=== PATIENT | male | born 1950 | race African-American/Black ===

== ENCOUNTER 2018-02-10 08:13 | Day surgery (SDC) | payer MEDICARE ==
[2018-02-05 12:11] VITALS: BMI 32.5
[~2018-02-10 08:13] MED LIST: LACTATED RINGERS 1,000 ML IV SCH; LIDOCAINE 1% 20 ML VIAL (10MG/ML) FOR IV START INTRADERMA PRN
[2018-02-10 08:48] VITALS: RESP 16; TEMP 97.3
[2018-02-10] MEDS ORDERED: LIDOCAINE 1% INJ 10MG/ML (20 ML MDV) ONE (09:34)
[2018-02-10] MEDS ORDERED: PROPOFOL 10 MG/ML 20 ML VIAL IV ONE (09:34)
[2018-02-10 10:21] VITALS: BP 138/78; PULSE 52
--- NOTE | 2018-02-10 11:15 | P.PCN ---
Date of Procedure: 02/10/18 Procedure(s) Performed: Procedure: Colonoscopy and polypectomy. Preoperative diagnosis: Screening for neoplasia, patient has history of colon cancer. Postoperative diagnosis: 1. Sigmoid diverticulosis with no evidence of acute diverticulitis or strictures. 2. Hepatic flexure polyp snared but no large polyps or cancer. 3. S/P resection right colon with no evidence of local recurrence. Preparation: HalfLytely prep. Sedation: Was provided by anesthesia. 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 The patient is scheduled for this evaluation for screening for neoplasia. He has no abdominal complaints, bleeding or anemia. Procedure: With the patient on his left lateral decubitus position and after informed consent and adequate sedation, the perianal area was inspected and it did not show any fissures or fistulas. There were no masses felt on digital rectal examination. The Olympus CFQ 160L video colonoscope was then inserted in the rectum in the usual fashion and advanced to the cecum. There were a few diverticular orifices seen scattered in the sigmoid but I saw no evidence of acute diverticulitis or strictures. Around the hepatic flexure, there was a 1.5 cm polyp which was snared and retrieved by suction but there were no large polyps or cancer. I noted the resection area and the proximal right colon and there was no evidence of local recurrence. I retroflexed the endoscope in the rectum before the endoscope was withdrawn. The patient tolerated the procedure well. Plan: The patient was reassured. Discussed dietary measures. He will follow up with you as planned and I recommended repeat exam in 3-5 years.
== END 2018-02-10 10:27 | disposition home or self-care (01) ==
LOC: ORWHC2ENDO 08:13
DX: Z12.11 Encounter for screening for malignant neoplasm of colon (principal); D12.3 Benign neoplasm of transverse colon; K57.30 Diverticulosis of large intestine without perforation or abscess without bleeding; Z90.49 Acquired absence of other specified parts of digestive tract; Z85.038 Personal history of other malignant neoplasm of large intestine; Z86.010 Personal history of colon polyps; I10 Essential (primary) hypertension; Z79.899 Other long term (current) drug therapy
CPT/HCPCS: 88305; 45385; J2001; J2704

== ENCOUNTER 2019-11-08 21:23 | Emergency (ER) | payer MEDICARE ==
[2019-11-08 21:30] VITALS: RESP 18; TEMP 98.1
[2019-11-08] MEDS ORDERED: LIDOCAINE 1% INJ 10MG/ML (20 ML MDV) SQ ONE (21:36)
[2019-11-08] MEDS ORDERED: DIPH,PERTUS(ACELL)TETVAC-LF 0.5 ML VIAL IM ONE (21:36)
[2019-11-08] MEDS ORDERED: WATER FOR IRRIG, STERILE 1,000 ML BTL IRRIGATION ONE (21:36)
--- NOTE | 2019-11-08 21:52 | ED ---
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 Just prior to arrival patient had a fall hitting his head on a glass table. The glass table didn't break causing lacerations to the right side of his head. Patient denies any loss of consciousness with this. He is unsure when his last tetanus vaccine was given. Denies any current headache, blurred vision, double vision, nausea, or vomiting. Denies any neck or back pain. Denies any other injuries. He does admit to drinking alcohol today. Denies any use of blood thinning medications. Patient denies any chest pain, shortness of breath, dizziness, weakness, abdominal pain, nausea, vomiting, or difficulties with bowel movements or urination. - Related Data Home Medications Medication Instructions Recorded Confirmed No Known Home Medications 11/08/19 11/08/19 Allergies/Adverse reactions: Allergies Allergy/AdvReac Type Severity Reaction Status Date / Time No Known Allergies Allergy Verified 11/08/19 22:11 Review of Systems ROS Statement: Those systems with pertinent positive or pertinent negative responses have been documented in the HPI. ROS Other: All systems not noted in ROS Statement are negative. Past Medical History Past Medical History: Cancer, Hypertension, Syncope Additional Past Medical History / Comment(s): HX OF COLON CANCER, SBO, ANEMIA. History of Any Multi-Drug Resistant Organisms: None Reported Past Surgical History: Appendectomy, Bowel Resection, Tonsillectomy Additional Past Surgical History / Comment(s): partial colectomy. COLONOSCOPY. EGD Past Anesthesia/Blood Transfusion Reactions: No Reported Reaction Additional Past Anesthesia/Blood Transfusion Reaction / Comment(s): none Past Psychological History: No Psychological Hx Reported Smoking Status: Never smoker Past Alcohol Use History: Occasional Past Drug Use History: None Reported - Past Family History Mother Family Medical History: Cancer Additional Family Medical History / Comment(s): LUNG CA General Exam Limitations: no limitations General appearance: alert, in no apparent distress, appears intoxicated, other (This is a well-developed, well-nourished adult male patient in no acute distress. Vital signs upon presentation are temperature 98.1F, pulse 86, respirations 18, blood pressure 179/119, pulse ox 96% on room air.) Head exam: Present: other (Patient has laceration noted to the right forehead, right sided scalp. There is also skin avulsion noted. No bony step-off or def ormity noted to palpation around the site.) Eye exam: Present: normal appearance, PERRL, EOMI. Absent: scleral icterus, conjunctival injection, periorbital swelling ENT exam: Present: normal oropharynx, mucous membranes moist, other (Patient has 3 lacerations noted to the right ear one measuring 1cm over the antihelix, one measuring 1cm over the antitragus, and a flap laceration measuring 2cm over the posterior pinna. Mild bleeding noted from each. ) Neck exam: Present: normal inspection, full ROM, other (Nontender, no step-off, no deformity to firm midline palpation of the posterior cervical spine. Full range of motion without pain or limitation.). Absent: tenderness, meningismus, lymphadenopathy Respiratory exam: Present: normal lung sounds bilaterally. Absent: respiratory distress, wheezes, rales, rhonchi, stridor Cardiovascular Exam: Present: regular rate, normal rhythm, normal heart sounds. Absent: systolic murmur, diastolic murmur, rubs, gallop, clicks GI/Abdominal exam: Present: soft, normal bowel sounds. Absent: distended, tenderness, guarding, rebound, rigid Back exam: Present: normal inspection, other (Nontender, no step-off, no deformity to firm midline palpation of the thoracic and lumbar vertebrae. Full range of motion without pain or limitation.). Absent: vertebral tenderness Neurological exam: Present: alert, oriented X3, CN II-XII intact Psychiatric exam: Present: normal affect, normal mood Skin exam: Present: warm, dry, intact, normal color. Absent: rash Course Vital Signs 11/08/19 11/08/19 21:26 23:05 Temperature 98.1 F Pulse Rate 86 87 Respiratory 18 18 Rate Blood Pressure 179/119 164/96 O2 Sat by Pulse 96 96 Oximetry Procedures - Laceration Laceration #1 Consent Obtained: verbal consent Indication: laceration Site: other (Forehead) Size (cm): 6 Description: linear Depth: simple, single layer Anesthetic Used: lidocaine 1% Anesthesia Technique: local infiltration Amount (mls): 4 Pre-repair: irrigated extensively Type of Sutures: nylon Size of Sutures: 5-0 Number of Sutures: 8 Technique: simple, interrupted Patient Tolerated Procedure: well, no complications Laceration #2 Consent Obtained: verbal consent Indication: laceration Site: other (Scalp) Size (cm): 4 Description: flap Depth: simple, single layer Anesthetic Used: lidocaine 1% Anesthesia Technique: local infiltration Amount (mls): 3 Pre-repair: irrigated extensively Type of Sutures: nylon Size of Sutures: 5-0 Number of Sutures: 4 Technique: simple, interrupted Patient Tolerated Procedure: well, no complications Laceration #3 Consent Obtained: verbal consent Indication: laceration Site: face (Right temporal region) Size (cm): 2 Description: flap Depth: simple, single layer Anesthetic Used: lidocaine 1% Anesthesia Technique: local infiltration Amount (mls): 2 Pre-repair: irrigated extensively Type of Sutures: nylon Size of Sutures: 5-0 Number of Sutures: 2 Technique: simple, interrupted Patient Tolerated Procedure: well, no complications Laceration #4 Consent Obtained: verbal consent Indication: laceration Site: other (Right ear) Size (cm): 1 Description: linear Depth: simple, single layer Type of Sutures: other (Exofin) Patient Tolerated Procedure: well, no complications Laceration #5 Consent Obtained: verbal consent Indication: laceration Site: other (Right ear) Size (cm): 1 Description: linear Depth: simple, single layer Type of Sutures: other (Exofin skin adhesive) Patient Tolerated Procedure: well, no complications Laceration #6 Indication: laceration Site: other (Right ear) Size (cm): 2 Description: flap Depth: simple, single layer Type of Sutures: other (Exofin skin adhesive) Patient Tolerated Procedure: well, no complications Medical Decision Making - Medical Decision Making 69-year-old male patient presents to the emergency department today for evaluation after falling and hitting his head on a glass table causing multiple lacerations to the face and ear. Physical examination did reveal 3 lacerations noted to the right ear which were repaired with excellent in skin adhesive. Did have a laceration to his forehead, right scalp just above the right ear and over the temporal region which were all repaired with sutures as documented. CT brain and C-spine was negative for any abnormalities. Does not take blood thinning medications. He is neurologically intact with no focal deficits. He will be discharged home to follow-up with his primary care physician for recheck in 1-2 days. I did discuss suture removal, wound care, and signs or symptoms of worsening head injury with his significant other. Return parameters were discussed in detail. They verbalize understanding and agree with this plan. - Radiology Data Radiology results: report reviewed, image reviewed CT brain and C-spine without contrast was obtained. Report was reviewed in its entirety. Impression by Dr. Mello shows no acute fracture dislocation evident in the cervical spine. No acute intracranial hemorrhage, mass effect, or midline shift is seen. Disposition Clinical Impression: Head injury, Face lacerations, Alcohol intoxication Disposition: HOME SELF-CARE Condition: Good Instructions (If sedation given, give patient instructions): Care For Your Stitches (ED), Laceration (ED), Head Injury (ED) Additional Instructions: Keep wounds clean and dry. Cleanse wounds twice daily with warm water and antibacterial soap. Return in 5 days to have the stitches removed. Avoid sun exposure over the wounds, this can cause worse scarring. Follow-up with your primary care physician for recheck in 1-2 days. Return to the emergency department immediately for any new, worsening, or concerning symptoms. Is patient prescribed a controlled substance at d/c from ED?: No Referrals: Sal Campos MD [Primary Care Provider] - 1-2 days Time of Disposition: 22:50
--- NOTE | 2019-11-08 22:06 | CT ---
EXAMINATION TYPE: CT brain cspine wo con DATE OF EXAM: 11/08/2019 COMPARISON: None HISTORY: head injury following fall, trauma and pain CT DLP: 1438.7 mGycm Automated exposure control for dose reduction was used. TECHNIQUE: CT scan of the head and cervical spine are performed without contrast. FINDINGS: There is motion on the exam. There is no acute intracranial hemorrhage, mass effect, or mi dline shift identified. The ventricles and sulci are within normal limits in size. The globes are i ntact and the visualized sinuses are clear. Cervical spine is visualized in its entirety from C1 through upper thoracic levels and demonstrates s atisfactory alignment without evidence of acute fracture or dislocation. Prevertebral soft tissue ap pears within normal limits. The C1-C2 articulation is unremarkable. Multilevel spondylosis is presen t. Loss of disc height present at C5-6, C6-7. Posterior midline fusion anomaly at C1 is noted. IMPRESSION: 1. There is no acute fracture or dislocation evident in the cervical spine. 2. No acute intracranial hemorrhage, mass effect, or midline shift is seen.
[2019-11-08] MEDS ORDERED: TOPICAL SKIN ADHESIVE 1 EACH AMP TOPICAL ONE (22:41)
[2019-11-08 23:07] VITALS: BP 164/96; PULSE 87
== END 2019-11-08 23:05 | disposition home or self-care (01) ==
LOC: EC 21:23
DX: S01.81XA Laceration without foreign body of other part of head, initial encounter (principal); S01.01XA Laceration without foreign body of scalp, initial encounter; S01.311A Laceration without foreign body of right ear, initial encounter; F10.129 Alcohol abuse with intoxication, unspecified; Z85.038 Personal history of other malignant neoplasm of large intestine; Z23 Encounter for immunization; W19.XXXA Unspecified fall, initial encounter; W25.XXXA Contact with sharp glass, initial encounter; Y92.009 Unspecified place in unspecified non-institutional (private) residence as the place of occurrence of the external cause
CPT/HCPCS: 72125; 70450; 90715; 99284; 12015; 12002; 90471; J2001

== ENCOUNTER 2020-12-12 23:19 | Observation (INO) | payer MEDICARE ==
[2020-12-12] MEDS ORDERED: ONDANSETRON 4 MG/2 ML VIAL IVP STA (23:50)
[2020-12-12] MEDS ORDERED: MORPHINE SULFATE 2 MG/ML SYRINGE IVP STA (23:50)
[2020-12-12] MEDS ORDERED: SODIUM CHLORIDE 0.9% 500 ML 500 ML IV STA (23:50)
[2020-12-13 00:39] LABS: Basophils # (A) 0.1 k/uL (0-0.2); Basophils % (A) 1 %; Eosinophils # (A) 0.6 k/uL (0-0.7); Eosinophils % (A) 5 %; HCT 45.9 % (39.0-53.0); HGB 15.4 gm/dL (13.0-17.5); Lymphocytes # (A) 1.7 k/uL (1.0-4.8); Lymphocytes % (A) 17 %; MCH 28.7 pg (25.0-35.0); MCHC 33.5 g/dL (31.0-37.0); MCV 85.6 fL (80.0-100.0); Mean Platelet Volume 9.8; Monocytes # (A) 0.6 k/uL (0-1.0); Monocytes % (A) 6 %; Neutrophils # (A) 7.2 k/uL (1.3-7.7); Neutrophils % (A) 70 %; Platelet Count 175 k/uL (150-450); RBC 5.36 m/uL (4.30-5.90); RDW 13.7 % (11.5-15.5); WBC 10.2 k/uL (3.8-10.6)
[2020-12-13 00:46] LABS: Albumin 4.7 g/dL (3.5-5.0); Calcium 9.5 mg/dL (8.4-10.2); Total Bilirubin 0.7 mg/dL (0.2-1.3)
[2020-12-13 01:04] LABS: Potassium 4.8 mmol/L (3.5-5.1)
--- NOTE | 2020-12-13 01:06 | ED ---
Abdominal Pain HPI - General Chief Complaint: Abdominal Pain Stated Complaint: Abdominal Pain Time Seen by Provider: 12/12/20 23:31 Source: patient Mode of arrival: ambulatory Limitations: no limitations - History of Present Illness Initial Comments: 70 year-old male patient presents to the emergency department for evaluation of abdominal cramping. Patient states the pain is generalized. Denies radiation to the back. Denies any associated symptoms including nausea, vomiting, or diarrhea. Symptoms started right after eating dinner. States he did have some sweating on the way here. Denies any chest pain or shortness of breath. Denies any previous abdominal surgeries. States he has had previous normal colonoscopy. Denies any hematochezia or melena. Denies difficulty with urination. Patient denies any recent rash, cough, back pain, numbness, tingling, dizziness, weakness, hematuria, dysuria, urinary urgency, urinary frequency, headache, visual changes, or any other complaints. - Related Data Home Medications Medication Instructions Recorded Confirmed No Known Home Medications 11/08/19 11/08/19 Allergies Allergy/AdvReac Type Severity Reaction Status Date / Time No Known Allergies Allergy Verified 12/12/20 23:26 Review of Systems ROS Statement: Those systems with pertinent positive or pertinent negative responses have been documented in the HPI. ROS Other: All systems not noted in ROS Statement are negative. Past Medical History Past Medical History: Cancer, Hypertension, Syncope Additional Past Medical History / Comment(s): HX OF COLON CANCER, SBO, ANEMIA. History of Any Multi-Drug Resistant Organisms: None Reported Past Surgical History: Appendectomy, Bowel Resection, Tonsillectomy Additional Past Surgical History / Comment(s): partial colectomy. COLONOSCOPY. EGD Past Anesthesia/Blood Transfusion Reactions: No Reported Reaction Additional Past Anesthesia/Blood Transfusion Reaction / Comment(s): none Past Psychological History: No Psychological Hx Reported Smoking Status: Never smoker Past Alcohol Use History: Occasional Past Drug Use History: Marijuana - Past Family History Mother Family Medical History: Cancer Additional Family Medical History / Comment(s): LUNG CA General Exam Limitations: no limitations General appearance: alert, in no apparent distress, other (Physical well- developed, well-nourished elderly male patient in no acute distress. Vital signs upon presentation Are 97.4F, pulse 70, respirations 18, blood pressure 153/89, pulse ox 98% on room air.) Eye exam: Present: normal appearance, PERRL, EOMI. Absent: scleral icterus, conjunctival injection, periorbital swelling ENT exam: Present: normal exam, normal oropharynx, mucous membranes moist Respiratory exam: Present: normal lung sounds bilaterally. Absent: respiratory distress, wheezes, rales, rhonchi, stridor Cardiovascular Exam: Present: regular rate, normal rhythm, normal heart sounds. Absent: systolic murmur, diastolic murmur, rubs, gallop, clicks GI/Abdominal exam: Present: soft, tenderness (Midepigastric), normal bowel sound s. Absent: distended, guarding, rebound, rigid Neurological exam: Present: alert, oriented X3, CN II-XII intact Psychiatric exam: Present: normal affect, normal mood Skin exam: Present: warm, dry, intact, normal color. Absent: rash Course Vital Signs 12/12/20 12/13/20 12/13/20 23:27 01:17 02:10 Temperature 97.4 F L Pulse Rate 70 66 70 Respiratory 18 18 18 Rate Blood Pressure 153/89 153/105 158/103 O2 Sat by Pulse 98 98 100 Oximetry Medical Decision Making - Medical Decision Making 70 year-old male patient presents to the emergency department for evaluation of generalized crampy abdominal pain. Physical examination did reveal midepigastric tenderness. He is afebrile with normal vital signs. Labs reviewed and are unremarkable. KUB shows fluid levels in her right midabdomen. CT of the pelvis is obtained and shows evidence for small bowel obstruction transition point in the right lower quadrant. He is not vomiting so we will not do NG tube at this time. He'll be admitted to the hospital with surgical consult. I did discuss findings and results with the patient. He agrees with the plan. Case discussed with my attending Dr. Reza. - Lab Data Result diagrams: 12/13/20 00:06 12/13/20 00:06 Lab Results 12/13/20 12/13/20 12/13/20 Range/Units 00:06 00:06 00:06 WBC 10.2 (3.8-10.6) k/uL RBC 5.36 (4.30-5.90) m/uL Hgb 15.4 (13.0-17.5) gm/dL Hct 45.9 (39.0-53.0) % MCV 85.6 (80.0-100.0) fL MCH 28.7 (25.0-35.0) pg MCHC 33.5 (31.0-37.0) g/dL RDW 13.7 (11.5-15.5) % Plt Count 175 (150-450) k/uL MPV 9.8 Neutrophils % 70 % Lymphocytes % 17 % Monocytes % 6 % Eosinophils % 5 % Basophils % 1 % Neutrophils # 7.2 (1.3-7.7) k/uL Lymphocytes # 1.7 (1.0-4.8) k/uL Monocytes # 0.6 (0-1.0) k/uL Eosinophils # 0.6 (0-0.7) k/uL Basophils # 0.1 (0-0.2) k/uL Sodium 143 (137-145) mmol/L Potassium 4.8 (3.5-5.1) mmol/L Chloride 106 (98-107) mmol/L Carbon Dioxide 27 (22-30) mmol/L Anion Gap 10 mmol/L BUN 20 (9-20) mg/dL Creatinine 1.11 (0.66-1.25) mg/dL Est GFR (CKD-EPI)AfAm 78 (>60 ml/min/1.73 sqM) Est GFR (CKD-EPI)NonAf 67 (>60 ml/min/1.73 sqM) Glucose 156 H (74-99) mg/dL Plasma Lactic Acid Luis (0.7-2.0) mmol/L Calcium 9.5 (8.4-10.2) mg/dL Total Bilirubin 0.7 (0.2-1.3) mg/dL AST 32 (17-59) U/L ALT 23 (4-49) U/L Alkaline Phosphatase 143 H (38-126) U/L Total Protein 8.0 (6.3-8.2) g/dL Albumin 4.7 (3.5-5.0) g/dL Lipase 315 H (23-300) U/L Urine Color Yellow Urine Appearance Clear (Clear) Urine pH 6.5 (5.0-8.0) Ur Specific [place] 1.020 (1.001-1.035) Urine Protein Negative (Negative) Urine Glucose (UA) Negative (Negative) Urine Ketones Negative (Negative) Urine Blood Negative (Negative) Urine Nitrite Negative (Negative) Urine Bilirubin Negative (Negative) Urine Urobilinogen <2.0 (<2.0) mg/dL Ur Leukocyte Esterase Negative (Negative) 12/13/20 Range/Units 00:06 WBC (3.8-10.6) k/uL RBC (4.30-5.90) m/uL Hgb (13.0-17.5) gm/dL Hct (39.0-53.0) % MCV (80.0-100.0) fL MCH (25.0-35.0) pg MCHC (31.0-37.0) g/dL RDW (11.5-15.5) % Plt Count (150-450) k/uL MPV Neutrophils % % Lymphocytes % % Monocytes % % Eosinophils % % Basophils % % Neutrophils # (1.3-7.7) k/uL Lymphocytes # (1.0-4.8) k/uL Monocytes # (0-1.0) k/uL Eosinophils # (0-0.7) k/uL Basophils # (0-0.2) k/uL Sodium (137-145) mmol/L Potassium (3.5-5.1) mmol/L Chloride (98-107) mmol/L Carbon Dioxide (22-30) mmol/L Anion Gap mmol/L BUN (9-20) mg/dL Creatinine (0.66-1.25) mg/dL Est GFR (CKD-EPI)AfAm (>60 ml/min/1.73 sqM) Est GFR (CKD-EPI)NonAf (>60 ml/min/1.73 sqM) Glucose (74-99) mg/dL Plasma Lactic Acid Luis 1.2 (0.7-2.0) mmol/L Calcium (8.4-10.2) mg/dL Total Bilirubin (0.2-1.3) mg/dL AST (17-59) U/L ALT (4-49) U/L Alkaline Phosphatase (38-126) U/L Total Protein (6.3-8.2) g/dL Albumin (3.5-5.0) g/dL Lipase (23-300) U/L Urine Color Urine Appearance (Clear) Urine pH (5.0-8.0) Ur Specific [place] (1.001-1.035) Urine Protein (Negative) Urine Glucose (UA) (Negative) Urine Ketones (Negative) Urine Blood (Negative) Urine Nitrite (Negative) Urine Bilirubin (Negative) Urine Urobilinogen (<2.0) mg/dL Ur Leukocyte Esterase (Negative) - EKG Data -: EKG Interpreted by Me EKG Comments: EKG obtained at 07 14 shows normal sinus rhythm with a ventricular rate of 65, ME interval 154, QRS duration 106, QT 440, QTC 457. No evidence of ST elevation or depression. - Radiology Data Radiology results: report reviewed, image reviewed Two-view x-ray of the abdomen is obtained. Report was reviewed in its entirety. Impression by Dr. posadas shows mildly dilated small bowel loops with air-fluid levels in the right lower abdomen. May represent bowel obstruction. CT abdomen and pelvis is obtained. Report reviewed in its entirety. Impression by Dr. posadas shows small bowel check show a transition point in the right lower quadrant. Colonic diverticulosis. Somewhat limited evaluation partially distended colon. Wall thickening and colitis on excluded. Disposition Clinical Impression: Small bowel obstruction Disposition: ADMITTED IP TO THIS [facility] Condition: Serious Referrals: Williams Fermin MD [Primary Care Provider] - 1-2 days Decision to Admit Reason: Admit from EC Decision Date: 12/13/20 Decision Time: 03:07
[2020-12-13] MEDS ORDERED: MORPHINE SULFATE 4 MG/ML SYRINGE IVP STA (01:07)
[2020-12-13 01:12] LABS: Appearance,Urine Clear (Clear); Bilirubin,Urine Negative (Negative); Blood,Urine Negative (Negative); Color,Urine Yellow; Glucose,Urine (UA) Negative (Negative); Ketones,Urine Negative (Negative); Leukocyte Esterase,Urine Negative (Negative); Nitrite,Urine Negative (Negative); PH, Urine 6.5 (5.0-8.0); Protein,Urine Negative (Negative); Urobilinogen,Urine <2.0 mg/dL (<2.0)
--- NOTE | 2020-12-13 01:48 | XR ---
EXAM: XR Abdomen, 2 Views CLINICAL HISTORY: ITS.REASON XR Reason: abdominal pain TECHNIQUE: Frontal view of the abdomen/pelvis with upright view of the abdomen. COMPARISON: No relevant prior studies available. FINDINGS: Intraperitoneal space: No free air. Gastrointestinal tract: Mildly dilated small bowel loops with air- fluid levels in the right lower abdomen. Bowel sutures in the right lower quadrant. Paucity of bowel gas elsewhere. Bones/joints: Unremarkable. IMPRESSION: Mildly dilated small bowel loops with air-fluid levels in the right lower abdomen. May represent bowel obstruction.
--- NOTE | 2020-12-13 02:49 | CT ---
EXAM: CT Abdomen and Pelvis With Intravenous Contrast CLINICAL HISTORY: ITS.REASON CT Reason: Abdominal pain TECHNIQUE: Axial computed tomography images of the abdomen and pelvis with intravenous contrast. CTDI is 29.47 mGy and DLP is 1328.8 mGy-cm. This CT exam was performed using one or more of the following dose reduction techniques: automated exposure control, adjustment of the mA and/or kV according to patient size, and/or use of iterative reconstruction technique. COMPARISON: X-ray today. FINDINGS: Lung bases: Unremarkable. No mass. No consolidation. ABDOMEN: Liver: Unremarkable. No mass. Gallbladder and bile ducts: Unremarkable. No calcified stones. No ductal dilation. Pancreas: Unremarkable. No mass. No ductal dilation. Spleen: Unremarkable. No splenomegaly. Adrenals: Unremarkable. No mass. Kidneys and ureters: Unremarkable. No solid mass. No hydronephrosis. Stomach and bowel: Mildly dilated small bowel loops in the right abdomen with some air-fluid levels and some fecal-like small bowel contents. Distal small bowel loops collapsed. Mild associated edema. Consistent with small bowel obstruction. Transition point in the right lower quadrant. Colonic diverticulosis. Somewhat limited evaluation of partially distended colon. Wall thickening and colitis not excluded. Sutures in the right lower quadrant/partial right colectomy. PELVIS: Appendix: See above. Bladder: Unremarkable. No mass. Reproductive: Unremarkable as visualized. ABDOMEN and PELVIS: Intraperitoneal space: Unremarkable. No free air. No significant fluid collection. Bones/joints: No acute fracture. No dislocation. Soft tissues: Small fat-containing ventral hernias. Vasculature: Unremarkable. No abdominal aortic aneurysm. Lymph nodes: Unremarkable. No enlarged lymph nodes. IMPRESSION: 1. Small bowel obstruction with transition point in the right lower quadrant. 2. Colonic diverticulosis. Somewhat limited evaluation of partially distended colon. Wall thickening and colitis not excluded.
[2020-12-13] MEDS ORDERED: MORPHINE SULFATE 4 MG/ML SYRINGE IV PRN (03:04)
[2020-12-13] MEDS ORDERED: NALOXONE 0.4 MG/ML 1 ML VIAL IV PRN (03:04)
[2020-12-13] MEDS ORDERED: ONDANSETRON 4 MG/2 ML VIAL IVP PRN (03:04)
[2020-12-13] MEDS: SODIUM CHLORIDE 0.9% 1,000 ML IV SCH ×2 (03:35→19:54)
[2020-12-13] MEDS: ACETAMINOPHEN IV (For NPO) 1,000 MG in EMPTY BAG 1 BAG IVPB SCH ×3 (10:32→23:25)
--- NOTE | 2020-12-13 11:17 | P.GSCN ---
<Anay José - Last Filed: 12/13/20 11:08> History of Present Illness Consult date: 12/13/20 History of present illness: CHIEF COMPLAINT: Abdominal pain HISTORY OF PRESENT ILLNESS: This is a 70-year-old male with a known history of colon cancer status post right hemicolectomy in 2013. He also has surgical history of an appendectomy. His past medical history includes small bowel obstruction treated conservatively and hypertension. Patient presented to the emergency room for crampy abdominal pain. Patient reports that his pain started after eating dinner last night. He was eating fish and potatoes. He complains of severe cramping abdominal pain in the mid abdomen at his old incision site. He was having nausea but no vomiting. He had a computed tomography scan of the abdomen and pelvis shows small bowel obstruction with transition point in the right lower quadrant. Colonic diverticulosis. Somewhat limited evaluation of partially distended colon. Wall thickening and colitis not excluded. Patient denies any fever, chills or sweats. Denies any constipation or diarrhea. He reports that his abdominal pain has now improved. And he is passing gas. Patient's last colonoscopy reported in chart was on 02/10/2018 he had a hepatic flexure polyp snared and evidence of sigmoid diverticulosis. At that time Dr. Olivera had recommended a repeat colonoscopy in 3-5 years. Surgical service has been consulted for small bowel obstruction. PAST MEDICAL HISTORY: See list. PAST SURGICAL HISTORY: See list. MEDICATIONS: See list. ALLERGIES: See list. SOCIAL HISTORY: No illicit drug use. REVIEW OF SYSTEMS: CONSTITUTIONAL: Denies fever or chills. HEENT: Denies blurred vision, vision changes, or eye pain. Denies hemoptysis ENDOCRINE: Denies heat or cold intolerance. CARDIOVASCULAR: Denies chest pain or pressure. RESPIRATORY: No shortness of breath. GASTROINTESTINAL: Please refer to HPI NEURO: Denies history of seizures. PSYCH: No depression or suicidal ideation HEMATOLOGIC: Denies bleeding disorders. LYMPHATIC: The patient denies any lumps and bumps around the neck. GENITOURINARY: Denies any blood in urine or increased urinary frequency. MUSCULOSKELETAL: Denies myalgias. Denies joint swelling. Denies decreased range of motion beyond patients baseline. SKIN: Denies pruitis. Denies rash. PHYSICAL EXAM: VITAL SIGNS: Reviewed GENERAL: Well-developed in no acute distress. HEENT: No sclera icterus. Extraocular movements grossly intact. Moist buccal mucosa. Head is atraumatic, normocephalic. Hears conversational speech. No nasal drainage. NECK: Supple without lymphadenopathy. CHEST: Non-labored respirations and equal bilateral excursions. CARDIOVASCULAR: Palpable 2+ radial pulses. ABDOMEN: Soft. Nondistended. Nontender old incisional scar mid abdomen that is healed MUSCULOSKELETAL: No clubbing or cyanosis. NEUROLOGIC: No focal or lateralizing signs. Cranial nerves II through XII grossly intact. PSYCH: Appropriate affect. Alert and oriented to person, place and time. SKIN: Well perfused. Good skin turgor. LABORATORY DATA: WBC 10.2 hemoglobin 15.4 platelets 175 sodium 143 potassium 4.8 BUN 20 creatinine is 1.11 LFTs normal alk phos 143 lipase 350 UA negative COVID-19 not detected IMAGING: KUB x-ray showed mildly dilated small bowel loops with air-fluid levels at the right lower abdomen. May represent bowel obstruction computed tomography scan of the abdomen and pelvis shows small bowel obstruction with transition point in the right lower quadrant. Colonic diverticulosis. Somewhat limited evaluation of partially distended colon. Wall thickening and colitis not excluded. ASSESSMENT: 1. Small bowel obstruction 2. History of colon cancer status post right colectomy in 2013 3. History of appendectomy 4. History of small bowel obstruction treated conservatively 5. Essential hypertension 6. 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 Signing provider agrees with the documented findings, assessment, and plan of care. Past Medical History Past Medical History: Cancer, Hypertension, Syncope Additional Past Medical History / Comment(s): HX OF COLON CANCER, SBO, ANEMIA. History of Any Multi-Drug Resistant Organisms: None Reported Past Surgical History: Appendectomy, Bowel Resection, Tonsillectomy Additional Past Surgical History / Comment(s): partial colectomy. COLONOSCOPY. EGD Past Anesthesia/Blood Transfusion Reactions: No Reported Reaction Additional Past Anesthesia/Blood Transfusion Reaction / Comm: none Past Psychological History: No Psychological Hx Reported Smoking Status: Never smoker Past Alcohol Use History: Occasional Past Drug Use History: Marijuana - Past Family History Mother Family Medical History: Cancer Additional Family Medical History / Comment(s): LUNG CA Medications and Allergies Home Medications Medication Instructions Recorded Confirmed Type amLODIPine [Norvasc] 10 mg PO DAILY 12/13/20 12/13/20 History Allergies Allergy/AdvReac Type Severity Reaction Status Date / Time No Known Allergies Allergy Verified 12/13/20 06:21 Surgical - Exam Vital Signs Temp Pulse Resp BP Pulse Ox 97.4 F L 70 18 153/89 98 12/12/20 23:27 12/12/20 23:27 12/12/20 23:27 12/12/20 23:27 12/12/20 23:27 Results - Labs 12/13/20 00:06 12/13/20 00:06 Abnormal Lab Results - Last 24 Hours (Table) 12/13/20 Range/Units 00:06 Glucose 156 H (74-99) mg/dL Alkaline Phosphatase 143 H (38-126) U/L Lipase 315 H (23-300) U/L Diabetes panel 12/13/20 Range/Units 00:06 Sodium 143 (137-145) mmol/L Potassium 4.8 (3.5-5.1) mmol/L Chloride 106 (98-107) mmol/L Carbon Dioxide 27 (22-30) mmol/L BUN 20 (9-20) mg/dL Creatinine 1.11 (0.66-1.25) mg/dL Glucose 156 H (74-99) mg/dL Calcium 9.5 (8.4-10.2) mg/dL AST 32 (17-59) U/L ALT 23 (4-49) U/L Alkaline Phosphatase 143 H (38-126) U/L Total Protein 8.0 (6.3-8.2) g/dL Albumin 4.7 (3.5-5.0) g/dL Calcium panel 12/13/20 Range/Units 00:06 Calcium 9.5 (8.4-10.2) mg/dL Albumin 4.7 (3.5-5.0) g/dL Pituitary panel 12/13/20 Range/Units 00:06 Sodium 143 (137-145) mmol/L Potassium 4.8 (3.5-5.1) mmol/L Chloride 106 (98-107) mmol/L Carbon Dioxide 27 (22-30) mmol/L BUN 20 (9-20) mg/dL Creatinine 1.11 (0.66-1.25) mg/dL Glucose 156 H (74-99) mg/dL Calcium 9.5 (8.4-10.2) mg/dL Adrenal panel 12/13/20 Range/Units 00:06 Sodium 143 (137-145) mmol/L Potassium 4.8 (3.5-5.1) mmol/L Chloride 106 (98-107) mmol/L Carbon Dioxide 27 (22-30) mmol/L BUN 20 (9-20) mg/dL Creatinine 1.11 (0.66-1.25) mg/dL Glucose 156 H (74-99) mg/dL Calcium 9.5 (8.4-10.2) mg/dL Total Bilirubin 0.7 (0.2-1.3) mg/dL AST 32 (17-59) U/L ALT 23 (4-49) U/L Alkaline Phosphatase 143 H (38-126) U/L Total Protein 8.0 (6.3-8.2) g/dL Albumin 4.7 (3.5-5.0) g/dL <Anum Yoder N - Last Filed: 12/14/20 20:54> History of Present Illness History of present illness: As above. Patient presents with bowel obstruction after multiple abdominal surgeries in the past 10 years. STUDIES: CT of the abdomen and pelvis independently reviewed by me demonstrating features of small bowel obstruction transition point along the right lower quadrant. Large bowel otherwise unremarkable. This is my independent interpretation. LABS: WBC within normal limits. Lipase elevated. Electrolytes within normal limits. ASSESSMENT: 1. Small bowel obstruction PLAN: 1. May start clear liquid diet. Surgical - Exam Vital Signs Temp Pulse Resp BP Pulse Ox 97.4 F L 70 18 153/89 98 12/12/20 23:27 12/12/20 23:27 12/12/20 23:27 12/12/20 23:27 12/12/20 23:27 Results - Labs 12/14/20 05:30 12/14/20 05:30 Abnormal Lab Results - Last 24 Hours (Table) 12/14/20 Range/Units 05:30 Chloride 110 H (96-109) mmol/L Carbon Dioxide 15.7 L (21.6-31.8) mmol/L Anion Gap 15.30 H (4.00-12.00) mmol/L BUN/Creatinine Ratio 10.00 L (12.00-20.00) Ratio Glucose 130 H (70-110) mg/dL Calcium 8.6 L (8.7-10.3) mg/dL Diabetes panel 12/14/20 Range/Units 05:30 Sodium 141 (135-145) mmol/L Potassium 4.2 (3.5-5.5) mmol/L Chloride 110 H (96-109) mmol/L Carbon Dioxide 15.7 L (21.6-31.8) mmol/L BUN 10.0 (9.0-27.0) mg/dL Creatinine 1.0 (0.6-1.5) mg/dL Glucose 130 H (70-110) mg/dL Calcium 8.6 L (8.7-10.3) mg/dL Calcium panel 12/14/20 Range/Units 05:30 Calcium 8.6 L (8.7-10.3) mg/dL Pituitary panel 12/14/20 Range/Units 05:30 Sodium 141 (135-145) mmol/L Potassium 4.2 (3.5-5.5) mmol/L Chloride 110 H (96-109) mmol/L Carbon Dioxide 15.7 L (21.6-31.8) mmol/L BUN 10.0 (9.0-27.0) mg/dL Creatinine 1.0 (0.6-1.5) mg/dL Glucose 130 H (70-110) mg/dL Calcium 8.6 L (8.7-10.3) mg/dL Adrenal panel 12/14/20 Range/Units 05:30 Sodium 141 (135-145) mmol/L Potassium 4.2 (3.5-5.5) mmol/L Chloride 110 H (96-109) mmol/L Carbon Dioxide 15.7 L (21.6-31.8) mmol/L BUN 10.0 (9.0-27.0) mg/dL Creatinine 1.0 (0.6-1.5) mg/dL Glucose 130 H (70-110) mg/dL Calcium 8.6 L (8.7-10.3) mg/dL Assessment and Plan (1) Partial small bowel obstruction Status: Acute Code(s): K56.69 - OTHER INTESTINAL OBSTRUCTION * DO NOT USE * SNOMED Code(s): 537765864
--- NOTE | 2020-12-13 12:58 | P.HPIM ---
History of Present Illness Patient denied crampy abdominal pain moderate severity restarted yesterday diffusely last bowel movement was yesterday presently passing gas does have bowel sounds patient had history of colon cancer years ago about 6 years ago patient had a colectomy with end-to-end anastomosis never had any chemoradiation therapy. Patient's abdominal pain significantly improved today. Patient had a CT of the abdomen which showed dilated the small bowel loops the right lower abdomen with transition point in the right lower quadrant. Review of Systems REVIEW OF SYSTEMS: CONSTITUTIONAL: No fever, no malaise, no fatigue. HEENT: No recent visual problems or hearing problems. Denied any sore throat. CARDIOVASCULAR: No chest pain, orthopnea, PND, no palpitations, no syncope. PULMONARY: No shortness of breath, no cough, no hemoptysis. GASTROINTESTINAL: As mentioned in HPI NEUROLOGICAL: No headaches, no weakness, no numbness. HEMATOLOGICAL: Denies any bleeding or petechiae. GENITOURINARY: Denies any burning micturition, frequency, or urgency. MUSCULOSKELETAL/RHEUMATOLOGICAL: Denies any joint pain, swelling, or any muscle pain. ENDOCRINE: Denies any polyuria or polydipsia. The rest of the 14-point review of systems is negative. Past Medical History Past Medical History: Cancer, Hypertension, Syncope Additional Past Medical History / Comment(s): HX OF COLON CANCER, SBO, ANEMIA. History of Any Multi-Drug Resistant Organisms: None Reported Past Surgical History: Appendectomy, Bowel Resection, Tonsillectomy Additional Past Surgical History / Comment(s): partial colectomy. COLONOSCOPY. EGD Past Anesthesia/Blood Transfusion Reactions: No Reported Reaction Additional Past Anesthesia/Blood Transfusion Reaction / Comment(s): none Past Psychological History: No Psychological Hx Reported Smoking Status: Never smoker Past Alcohol Use History: Occasional Past Drug Use History: Marijuana - Past Family History Mother Family Medical History: Cancer Additional Family Medical History / Comment(s): LUNG CA Medications and Allergies Home Medications Medication Instructions Recorded Confirmed Type amLODIPine [Norvasc] 10 mg PO DAILY 12/13/20 12/13/20 History Allergies Allergy/AdvReac Type Severity Reaction Status Date / Time No Known Allergies Allergy Verified 12/13/20 06:21 Physical Exam Vitals: Vital Signs Temp Pulse Resp BP Pulse Ox 12/13/20 12:19 66 18 147/92 97 12/13/20 07:21 97.7 F 68 16 117/83 96 12/13/20 04:12 69 16 153/99 97 12/13/20 02:10 70 18 158/103 100 12/13/20 01:17 66 18 153/105 98 12/12/20 23:27 97.4 F L 70 18 153/89 98 Intake and Output 12/12/20 12/13/20 12/13/20 22:59 06:59 14:59 Other: Weight 108.862 kg PHYSICAL EXAMINATION: GENERAL: The patient is alert and oriented x3, not in any acute distress. Well developed, well nourished. HEENT: Pupils are round and equally reacting to light. EOMI. No scleral icterus. No conjunctival pallor. Normocephalic, atraumatic. No pharyngeal erythema. No thyromegaly. CARDIOVASCULAR: S1 and S2 present. No murmurs, rubs, or gallops. PULMONARY: Chest is clear to auscultation, no wheezing or crackles. ABDOMEN: Soft, nontender, nondistended, normoactive bowel sounds. No palpable organomegaly. MUSCULOSKELETAL: No joint swelling or deformity. EXTREMITIES: No cyanosis, clubbing, or pedal edema. NEUROLOGICAL: Gross neurological examination did not reveal any focal deficits. SKIN: No rashes. Results CBC & Chem 7: 12/13/20 00:06 12/13/20 00:06 Labs: Abnormal Lab Results - Last 24 Hours (Table) 12/13/20 Range/Units 00:06 Glucose 156 H (74-99) mg/dL Alkaline Phosphatase 143 H (38-126) U/L Lipase 315 H (23-300) U/L Assessment and Plan Plan: -Partial small bowel obstruction/ileus: Patient symptoms are already improving patient will be started on clear liquid diet and advance as tolerated Hypertension: Hold off aneurysm medications monitor blood pressure -History of colon cancer with right colectomy in 2014,: Cancer is in remission since then. -DVT prophylaxis ambulation
[2020-12-14] MEDS: SODIUM CHLORIDE 0.9% 1,000 ML IV SCH (04:46)
[2020-12-14] MEDS: ACETAMINOPHEN IV (For NPO) 1,000 MG in EMPTY BAG 1 BAG IVPB SCH (05:19)
[2020-12-14 08:01] LABS: HCT 47.6 % (39.0-53.0); HGB 14.8 gm/dL (13.0-17.5); Hypochromasia Marked; MCH 28.6 pg (25.0-35.0); Mean Platelet Volume 8.8; Platelet Count 176 k/uL (150-450); RBC 5.17 m/uL (4.30-5.90); RDW 13.7 % (11.5-15.5); WBC 6.7 k/uL (3.8-10.6)
[2020-12-14 08:02] LABS: MCV 92.2 fL (80.0-100.0)
[2020-12-14 11:32] VITALS: BP 150/92; PULSE 63; RESP 20; TEMP 99
--- NOTE | 2020-12-14 12:20 | P.PN ---
<Anay José - Last Filed: 12/14/20 12:17> Subjective Progress Note Date: 12/14/20 CHIEF COMPLAINT: Abdominal pain HISTORY OF PRESENT ILLNESS: Surgical service is following in regards to patient's small bowel obstruction. His abdominal pain has completely resolved. He is passing gas. No bowel movement yet. He reports his last bowel movement was on Saturday. Denies any nausea or vomiting. Tolerating clear liquid diet. Afebrile. WBC is 6.7 hemoglobin 14.8 platelets 176 PHYSICAL EXAM: VITAL SIGNS: Reviewed GENERAL: Well-developed in no acute distress. HEENT: No sclera icterus. Extraocular movements grossly intact. Moist buccal mucosa. Head is atraumatic, normocephalic. Hears conversational speech. No nasal drainage. NECK: Supple without lymphadenopathy. CHEST: Non-labored respirations and equal bilateral excursions. CARDIOVASCULAR: Palpable 2+ radial pulses. ABDOMEN: Soft. Nondistended. Nontender. MUSCULOSKELETAL: No clubbing or cyanosis. NEUROLOGIC: No focal or lateralizing signs. Cranial nerves II through XII grossly intact. PSYCH: Appropriate affect. Alert and oriented to person, place and time. SKIN: Well perfused. Good skin turgor. ASSESSMENT: 1. Small bowel obstruction 2. History of colon cancer status post right colectomy in 2013 3. History of appendectomy 4. History of small bowel obstruction treated conservatively 5. Essential hypertension 6. 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 Signing provider agrees with the documented findings, assessment, and plan of care. Objective - Vital Signs Vital signs: Vital Signs Temp 99 F 12/14/20 11:31 Pulse 63 12/14/20 11:31 Resp 20 12/14/20 11:31 BP 150/92 12/14/20 11:31 Pulse Ox 99 12/14/20 11:31 Intake & Output 12/13/20 12/14/20 12/14/20 18:59 06:59 18:59 Intake Total 150 900 Balance 150 900 Weight 108.862 kg Intake: Intake, IV Titration 150 900 Amount Sodium Chloride 0.9% 1, 150 900 000 ml @ 75 mls/hr IV . [id number] [facility] Rx#:[id number] Other: Voiding Method Toilet # Voids 2 - Labs CBC & Chem 7: 12/14/20 05:30 12/13/20 00:06 <Anum Yoder - Last Filed: 12/14/20 20:57> Subjective Patient seen and evaluated. Please see pre-existing note. Objective - Vital Signs Vital signs: Vital Signs Temp 99 F 12/14/20 11:31 Pulse 63 12/14/20 11:31 Resp 20 12/14/20 11:31 BP 150/92 12/14/20 11:31 Pulse Ox 99 12/14/20 11:31 Intake & Output 12/14/20 12/14/20 12/15/20 06:59 18:59 06:59 Intake Total 900 Balance 900 Intake: Intake, IV Titration 900 Amount Sodium Chloride 0.9% 1, 900 000 ml @ 75 mls/hr IV . [id number] [facility] Rx#:[id number] Other: Voiding Method Toilet # Voids 2 - Labs CBC & Chem 7: 12/14/20 05:30 12/14/20 05:30 Labs: Abnormal Lab Results - Last 24 Hours (Table) 12/14/20 Range/Units 05:30 Chloride 110 H (96-109) mmol/L Carbon Dioxide 15.7 L (21.6-31.8) mmol/L Anion Gap 15.30 H (4.00-12.00) mmol/L BUN/Creatinine Ratio 10.00 L (12.00-20.00) Ratio Glucose 130 H (70-110) mg/dL Calcium 8.6 L (8.7-10.3) mg/dL Assessment and Plan (1) Partial small bowel obstruction Status: Acute Code(s): K56.69 - OTHER INTESTINAL OBSTRUCTION * DO NOT USE * SNOMED Code(s): 240891757
[2020-12-14 16:24] LABS: Anion Gap 15.3 mmol/L (4.00-12.00); Calcium 8.6 mg/dL (8.7-10.3); Carbon Dioxide 15.7 mmol/L (21.6-31.8); Non-African American GFR(CKD) 75.9 (60.0-200.0); Potassium 4.2 mmol/L (3.5-5.5)
--- NOTE | 2020-12-14 16:32 | P.DS ---
Providers Date of admission: 12/13/20 02:56 Expected date of discharge: 12/14/20 Attending physician: Kacy Medina Consults: 12/13/20 03:05 Consult Physician Routine Consulting Provider: Anum Yoder Consult Reason/Comments: Small Bowel Obstruction Do you want consulting provider notified?: Yes Primary care physician: Jeny Kramer Hospital Course: Final diagnosis -Partial small bowel obstruction/ileus -Hypertension -History of colon cancer with right colectomy in 2013,: Cancer is in remission since then. -DVT prophylaxis Discharge disposition Patient is being discharged in a stable condition with guarded prognosis to home. Patient will follow-up with Dr. Fermin upon discharge. Patient will also follow-up with his surgeon outpatient. Patient will continue on full liquids diet and slowly advance to low fiber in the outpatient setting. Total time taken is greater than 35 minutes. Hospital course This is a 70-year-old male who was recently admitted with cramping abdominal pain and moderate severity and was being closely monitored. Patient underwent CT of the abdomen on admission showing dilated small bowel loops in the right lower abdomen and there were concerns for bowel obstruction. Patient is actively passing gas and reporting bowel movements and denies any abdominal discomfort. Patient was seen and evaluated by surgery recommending conservative management. He was started on diet and tolerating and advance to full liquids and will continue with full liquid diet in the outpatient setting for the next few days and slowly advance to a low fiber diet once tolerating. Patient instructed to follow-up with primary care provider along with surgery in the outpatient setting. Patient is requesting to go home today. Currently no report s of chest pain, shortness of breath, or palpitations. Patient is afebrile. No reports of nausea or vomiting and patient is tolerating diet. On exam vital signs are stable. Cardio S1, S2 are muffled. Respiratory shows diminished breath sounds at the bases with no wheezing or rhonchi noted. Abdomen is soft and nontender. Nervous system shows no focal deficits. Please refer to medication reconciliation sheet for a list of medications. Patient Condition at Discharge: Stable Plan - Discharge Summary Discharge Rx Participant: No New Discharge Prescriptions: Continue amLODIPine [Norvasc] 10 mg PO DAILY Discharge Medication List amLODIPine [Norvasc] 10 mg PO DAILY 12/13/20 [History] Follow up Appointment(s)/Referral(s): Williams Fermin MD [Primary Care Provider] - 12/20/20 9:10 am Patient Instructions/Handouts: Low Fiber Diet (GEN), Bowel Obstruction (GEN), Full Liquid Diet (GEN) Activity/Diet/Wound Care/Special Instructions: Activity Limited until follow-up Follow-up with primary care provider Follow-up with surgery outpatient as needed Continue with clear liquids and advance slowly to full liquids and then low fiber over the next few days Discharge Disposition: HOME SELF-CARE
--- NOTE | 2020-12-14 20:57 | P.PN ---
Subjective Progress Note Date: 12/14/20 CHIEF COMPLAINT: Small bowel obstruction HISTORY OF PRESENT ILLNESS: The patient is a 70-year-old male admitted with small bowel obstruction. He reports he is passing flatus. Had a bowel movement. His abdominal pain resolved. He feels better than yesterday. He is ready for diet. ROS: No reports of nausea and vomiting. No fevers or chills. No new chest pain. No productive sputum PHYSICAL EXAM: VITAL SIGNS: Reviewed CONSTITUTIONAL: Well developed and in no acute distress. EYES: Conjuctivae without sclera icterus. Extraocular movements grossly intact. HEAD, EARS, NOSE, THROAT: Moist buccal mucosa. Head is atraumatic, normocephalic. Hears conversational speech. No nasal drainage. NECK: Supple. RESPIRATORY: Non-labored respirations and equal bilateral excursions. CARDIOVASCULAR: Palpable 2+ radial pulses. ABDOMEN: No peritonitis. MUSCULOSKELETAL: No gross deformity of the lower extremities noted. No clubbing. No cyanosis. SKIN: Good skin turgor. Well perfused. NEUROLOGIC: Cranial nerves II through XII grossly intact. No focal or lateralizing signs. PSYCH: Appropriate affect. Alert and oriented to person, place and time. CLINICAL LABS: White blood cell count normal ASSESSMENT: 1. Small bowel obstruction PLAN: 1. Clinically stable and may follow up as outpatient. 2. May benefit from outpatient lysis of adhesions. History of bowel obstruction 3. Advance diet. 4. Patient may be discharged once medically stable. Objective - Vital Signs Vital signs: Vital Signs Temp 99 F 12/14/20 11:31 Pulse 63 12/14/20 11:31 Resp 20 12/14/20 11:31 BP 150/92 12/14/20 11:31 Pulse Ox 99 12/14/20 11:31 Intake & Output 12/14/20 12/14/20 12/15/20 06:59 18:59 06:59 Intake Total 900 Balance 900 Intake: Intake, IV Titration 900 Amount Sodium Chloride 0.9% 1, 900 000 ml @ 75 mls/hr IV . [id number] [facility] Rx#:[id number] Other: Voiding Method Toilet # Voids 2 - Labs CBC & Chem 7: 12/14/20 05:30 12/14/20 05:30 Labs: Abnormal Lab Results - Last 24 Hours (Table) 12/14/20 Range/Units 05:30 Chloride 110 H (96-109) mmol/L Carbon Dioxide 15.7 L (21.6-31.8) mmol/L Anion Gap 15.30 H (4.00-12.00) mmol/L BUN/Creatinine Ratio 10.00 L (12.00-20.00) Ratio Glucose 130 H (70-110) mg/dL Calcium 8.6 L (8.7-10.3) mg/dL Assessment and Plan (1) Partial small bowel obstruction Status: Acute Code(s): K56.69 - OTHER INTESTINAL OBSTRUCTION * DO NOT USE * SNOMED Code(s): 792692833
== END 2020-12-14 15:30 | disposition home or self-care (01) ==
LOC: EC 23:19 → INTOOBSV 12-13 02:56 → 5NMEDONC 12-13 02:56 → UNDODISIN 12-14 15:30
PROVIDERS: ADMIT Internal Medicine; ATTEND Internal Medicine
DX: K56.600 Partial intestinal obstruction, unspecified as to cause (principal); K56.7 Ileus, unspecified; I10 Essential (primary) hypertension; K57.30 Diverticulosis of large intestine without perforation or abscess without bleeding; D64.9 Anemia, unspecified; Z20.822 Contact with and (suspected) exposure to COVID-19; Z79.899 Other long term (current) drug therapy; Z86.79 Personal history of other diseases of the circulatory system; Z85.038 Personal history of other malignant neoplasm of large intestine; Z90.49 Acquired absence of other specified parts of digestive tract; Z86.010 Personal history of colon polyps; Z98.890 Other specified postprocedural states; Z80.1 Family history of malignant neoplasm of trachea, bronchus and lung
CPT/HCPCS: 96361 ×3; 96376; 96374; 96375; 99285; 36415; 93005; 80053; 80048; 83605; 83690; 85025; 85027; 81003; 87635; 74018; 74177; G0378 ×2; J2270 ×2; J2405; J0131; Q9967

== ENCOUNTER 2021-09-03 09:55 | Observation (INO) | payer MEDICARE ==
[2021-09-03] MEDS ORDERED: ONDANSETRON 4 MG/2 ML VIAL IVP STA (10:13)
[2021-09-03] MEDS ORDERED: HYDROmorphone 0.5 MG/0.5 ML SYRINGE IVP STA (10:13)
[2021-09-03] MEDS ORDERED: SODIUM CHLORIDE 0.9% 500 ML 500 ML IV STA (10:13)
[2021-09-03 10:34] LABS: Basophils % (A) 1 %; Eosinophils # (A) 0.2 k/uL (0-0.7); Eosinophils % (A) 2 %; HCT 53.9 % (39.0-53.0); HGB 17.2 gm/dL (13.0-17.5); Lymphocytes # (A) 0.7 k/uL (1.0-4.8); Lymphocytes % (A) 8 %; MCH 28.2 pg (25.0-35.0); MCHC 31.9 g/dL (31.0-37.0); MCV 88.2 fL (80.0-100.0); Monocytes # (A) 0.3 k/uL (0-1.0); Monocytes % (A) 3 %; Neutrophils # (A) 8.1 k/uL (1.3-7.7); Neutrophils % (A) 86 %; Platelet Count 194 k/uL (150-450); RBC 6.11 m/uL (4.30-5.90); RDW 13.5 % (11.5-15.5); WBC 9.4 k/uL (3.8-10.6)
--- NOTE | 2021-09-03 11:13 | ED ---
Abdominal Pain HPI - General Chief Complaint: Abdominal Pain Stated Complaint: possible bowel obstruction Time Seen by Provider: 09/03/21 10:06 Source: patient, RN notes reviewed Mode of arrival: ambulatory Limitations: no limitations - History of Present Illness Initial Comments: 71-year-old male presents emergency Department with chief complaint of abdominal pain, possible obstruction. Patient had a history of abdominal surgeries, history of bowel obstruction last year. Patient states is distended, very constipated has had no stool output. No fevers or chills slight nausea no vomiting no diarrhea no chest pain. Patient denies any dysuria hematuria patient offers no complaints. - Related Data Home Medications Medication Instructions Recorded Confirmed amLODIPine [Norvasc] 10 mg PO DAILY 12/13/20 12/13/20 Allergies Allergy/AdvReac Type Severity Reaction Status Date / Time No Known Allergies Allergy Verified 09/03/21 09:58 Review of Systems ROS Statement: Those systems with pertinent positive or pertinent negative responses have been documented in the HPI. ROS Other: All systems not noted in ROS Statement are negative. Past Medical History Past Medical History: Cancer, Hypertension, Syncope Additional Past Medical History / Comment(s): Colon cancer with surgery only, SBO, benign colon polyp/diverticular disease, anemia History of Any Multi-Drug Resistant Organisms: None Reported Past Surgical History: Appendectomy, Bowel Resection, Tonsillectomy Additional Past Surgical History / Comment(s): Laparoscopic partial R colectomy, EGD, colonoscopy Past Anesthesia/Blood Transfusion Reactions: No Reported Reaction Additional Past Anesthesia/Blood Transfusion Reaction / Comment(s): none Past Psychological History: No Psychological Hx Reported Smoking Status: Never smoker Past Alcohol Use History: Occasional Past Drug Use History: Marijuana - Past Family History Mother Family Medical History: Cancer Additional Family Medical History / Comment(s): LUNG CA Father History Unknown: Yes General Exam Limitations: no limitations General appearance: alert, in no apparent distress Head exam: Present: atraumatic, normocephalic, normal inspection Eye exam: Present: normal appearance, PERRL, EOMI. Absent: scleral icterus, conjunctival injection, periorbital swelling ENT exam: Present: normal exam, normal oropharynx, mucous membranes moist Neck exam: Present: normal inspection, full ROM. Absent: tenderness, meningismus, lymphadenopathy Respiratory exam: Present: normal lung sounds bilaterally. Absent: respiratory distress, wheezes, rales, rhonchi, stridor Cardiovascular Exam: Present: regular rate, normal rhythm, normal heart sounds. Absent: systolic murmur, diastolic murmur, rubs, gallop, clicks GI/Abdominal exam: Present: soft, distended, tenderness, normal bowel sounds. Absent: guarding, rebound, rigid Back exam: Absent: CVA tenderness (R), CVA tenderness (L) Neurological exam: Present: alert Skin exam: Present: warm, dry, intact, normal color. Absent: rash Course Vital Signs 09/03/21 09:55 Temperature 98.4 F Pulse Rate 77 Respiratory 20 Rate Blood Pressure 201/114 O2 Sat by Pulse 96 Oximetry Medical Decision Making - Medical Decision Making 71-year-old male presented from for abdominal pain. Patient does have evidence of small bowel struck on CT. Patient does have history of this. Patient does not have any current vomiting. Patient placed on bowel rest, IV fluid hydration patient with consult to surgery. - Lab Data Result diagrams: 09/03/21 10:26 09/03/21 11:09 Lab Results 09/03/21 09/03/21 09/03/21 Range/Units 10:26 10:26 11:09 WBC 9.4 (3.8-10.6) k/uL RBC 6.11 H (4.30-5.90) m/uL Hgb 17.2 (13.0-17.5) gm/dL Hct 53.9 H (39.0-53.0) % MCV 88.2 (80.0-100.0) fL MCH 28.2 (25.0-35.0) pg MCHC 31.9 (31.0-37.0) g/dL RDW 13.5 (11.5-15.5) % Plt Count 194 (150-450) k/uL MPV 10.0 Neutrophils % 86 % Lymphocytes % 8 % Monocytes % 3 % Eosinophils % 2 % Basophils % 1 % Neutrophils # 8.1 H (1.3-7.7) k/uL Lymphocytes # 0.7 L (1.0-4.8) k/uL Monocytes # 0.3 (0-1.0) k/uL Eosinophils # 0.2 (0-0.7) k/uL Basophils # 0.0 (0-0.2) k/uL Sodium 138 (137-145) mmol/L Potassium 4.0 (3.5-5.1) mmol/L Chloride 103 (98-107) mmol/L Carbon Dioxide 23 (22-30) mmol/L Anion Gap 12 mmol/L BUN 11 (9-20) mg/dL Creatinine 0.94 (0.66-1.25) mg/dL Est GFR (CKD-EPI)AfAm >90 (>60 ml/min/1.73 sqM) Est GFR (CKD-EPI)NonAf 82 (>60 ml/min/1.73 sqM) Glucose 174 H (74-99) mg/dL Plasma Lactic Acid Luis 2.5 H* (0.7-2.0) mmol/L Calcium 9.4 (8.4-10.2) mg/dL Total Bilirubin 0.7 (0.2-1.3) mg/dL AST 23 (17-59) U/L ALT 23 (4-49) U/L Alkaline Phosphatase 137 H (38-126) U/L Total Protein 8.8 H (6.3-8.2) g/dL Albumin 4.8 (3.5-5.0) g/dL Lipase 154 (23-300) U/L Disposition Clinical Impression: Small bowel obstruction Disposition: ADMITTED IP TO THIS HOSP Condition: Fair Referrals: Williams Fermin MD [Primary Care Provider] - 1-2 days
[2021-09-03 11:36] LABS: ALT 23 U/L (4-49); AST 23 U/L (17-59); African American GFR (CKD) >90 (>60 ml/min/1.73 sqM); Albumin 4.8 g/dL (3.5-5.0); Alkaline Phosphatase 137 U/L (38-126); Anion Gap 12 mmol/L; Blood Urea Nitrogen 11 mg/dL (9-20); Calcium 9.4 mg/dL (8.4-10.2); Carbon Dioxide 23 mmol/L (22-30); Chloride 103 mmol/L (98-107); Glucose 174 mg/dL (74-99); Lipase 154 U/L (23-300); Non-African American GFR(CKD) 82 (>60 ml/min/1.73 sqM); Sodium 138 mmol/L (137-145); Total Bilirubin 0.7 mg/dL (0.2-1.3); Total Protein 8.8 g/dL (6.3-8.2)
--- NOTE | 2021-09-03 12:12 | CT ---
EXAMINATION TYPE: CT abdomen pelvis w con DATE OF EXAM: 09/03/2021 COMPARISON: 12/13/2020 HISTORY: Abdominal pain, history of bowel obstruction CT DLP: 1579.6 mGycm CONTRAST: CT scan of the abdomen and pelvis is performed without Oral Contrast and with IV Contrast, patient in jected with 100 ml mL of Isovue 300. FINDINGS: LUNG BASES-: No visible nodule. No infiltrate. LIVER/GB: No calcified gallstones. Cystic lesion posterior segment right hepatic lobe measuring 3 c m. Mild hepatic steatosis. Biliary tree is of normal caliber. PANCREAS: No inflammation. No distinct mass. SPLEEN: No splenic enlargement. No lesion seen. ADRENALS: No nodule. No thickening. KIDNEYS/BLADDER: No hydronephrosis. No nephrolithiasis. No distinct renal mass. Urinary bladder g rossly unremarkable. BOWEL: As seen previously right lower quadrant dilated loops of small bowel measuring up to 3 cm may reflect partial or early complete small bowel obstruction. Anastomotic changes about the ascending co james. Appendectomy changes noted as well. Small fat-containing umbilical hernia. GENITAL ORGANS: No gross abnormality. LYMPH NODES: No greater than 1cm abdominal or pelvic lymph nodes are appreciated. AORTA: No significant abnormality. OSSEOUS STRUCTURES: No significant abnormality is seen. OTHER: No significant additional abnormality is seen. IMPRESSION: 1. Findings as discussed may reflect partial lower early complete distal small bowel obstruction prox imal to postsurgical changes at the level of the ascending colon.
[2021-09-03] MEDS ORDERED: NALOXONE 0.4 MG/ML 1 ML VIAL IV PRN (12:22)
[2021-09-03] MEDS ORDERED: ONDANSETRON 4 MG/2 ML VIAL IVP PRN (12:22)
[2021-09-03] MEDS: HYDROmorphone 1 MG/ML 1 ML SYRINGE IVP PRN ×3 (12:35→20:11)
[2021-09-03] MEDS: SODIUM CHLORIDE 0.9% 1,000 ML IV SCH ×2 (12:40→14:34)
[2021-09-03] MEDS ORDERED: hydrALAZINE HCL 20 MG/ML 1 ML VIAL IVP STA (13:06)
[2021-09-03 17:53] LABS: Appearance,Urine Clear (Clear); Bilirubin,Urine Negative (Negative); Blood,Urine Negative (Negative); Color,Urine Light Yellow; Glucose,Urine (UA) 1+ (Negative); Ketones,Urine Trace (Negative); Leukocyte Esterase,Urine Negative (Negative); Nitrite,Urine Negative (Negative); Protein,Urine Trace (Negative); Urobilinogen,Urine <2.0 mg/dL (<2.0)
[2021-09-03 17:55] LABS: Specific Gravity,Urine 1.047 (1.001-1.035)
--- NOTE | 2021-09-04 01:21 | P.HPIM ---
History of Present Illness H&P Date: 09/03/21 Chief Complaint: Abdominal Pain 71-year-old male presents emergency Department with chief complaint of abdominal pain, possible obstruction. Patient had a history of abdominal surgeries, history of bowel obstruction last year. Patient states is distended, very constipated has had no stool output. No fevers or chills slight nausea no vomiting no diarrhea no chest pain. Patient denies any dysuria hematuria patient offers no complaints. Workup in ED reveals WBC of 9.4, HGB 17.2, nA OF 138, K 4.0, BUN/Cr 11/0.9, Blood glucose orf 174, Lactic acid 2.[address] abdomen/pelvis reveals findings that reflect partial small bowel obstruction Patient is being admitted for further management Review of Systems REVIEW OF SYSTEMS: CONSTITUTIONAL: No fever, no malaise, no fatigue. HEENT: No recent visual problems or hearing problems. Denied any sore throat. CARDIOVASCULAR: No chest pain, orthopnea, PND, no palpitations, no syncope. PULMONARY: No shortness of breath, no cough, no hemoptysis. GASTROINTESTINAL: No diarrhea, no nausea, no vomiting, no abdominal pain. NEUROLOGICAL: No headaches, no weakness, no numbness. HEMATOLOGICAL: Denies any bleeding or petechiae. GENITOURINARY: Denies any burning micturition, frequency, or urgency. MUSCULOSKELETAL/RHEUMATOLOGICAL: Denies any joint pain, swelling, or any muscle pain. ENDOCRINE: Denies any polyuria or polydipsia. The rest of the 14-point review of systems is negative. Past Medical History Past Medical History: Cancer, Hypertension, Syncope Additional Past Medical History / Comment(s): Colon cancer with surgery only, SBO, benign colon polyp/diverticular disease, anemia History of Any Multi-Drug Resistant Organisms: None Reported Past Surgical History: Appendectomy, Bowel Resection, Tonsillectomy Additional Past Surgical History / Comment(s): Laparoscopic partial R colectomy, EGD, colonoscopy Past Anesthesia/Blood Transfusion Reactions: No Reported Reaction Additional Past Anesthesia/Blood Transfusion Reaction / Comment(s): none Past Psychological History: No Psychological Hx Reported Smoking Status: Never smoker Past Alcohol Use History: Occasional Past Drug Use History: Marijuana - Past Family History Mother Family Medical History: Cancer Additional Family Medical History / Comment(s): LUNG CA Father History Unknown: Yes Medications and Allergies Home Medications Medication Instructions Recorded Confirmed Type amLODIPine [Norvasc] 10 mg PO DAILY 12/13/20 09/03/21 History Allergies Allergy/AdvReac Type Severity Reaction Status Date / Time No Known Allergies Allergy Verified 09/03/21 13:07 Physical Exam Vitals: Vital Signs Temp Pulse Resp BP Pulse Ox 09/03/21 12:40 76 18 169/110 97 09/03/21 09:55 98.4 F 77 20 201/114 96 Intake and Output 09/02/21 09/03/21 09/03/21 22:59 06:59 14:59 Other: Weight 108.862 kg General appearance: Present: average body habitus, cooperative, no acute distress Eyes: Present: anicteric sclerae, EOMI, PERRLA, normal appearance Neck: Present: normal ROM. Absent: lymphadenopathy, rigidity, thyromegaly Respiratory: bilateral: CTA, negative: rales, rhonchi, wheezing Cardiovascular; Rhythm: regular; normal: S1, S2 General gastrointestinal: Present: normal bowel sounds, soft. Absent: distended, organomegaly, tenderness Genitourinary Comment(s): deferred Integumentary: Present: normal turgor. Absent: jaundiced, rash, ulcer Neurologic: Present: CNII-XII intact. Absent: focal deficits Musculoskeletal: Present: gait normal, strength equal bilaterally Psychiatric: Present: A&O x's 3, appropriate affect, intact judgment & insight Results CBC & Chem 7: 09/03/21 10:26 09/03/21 11:09 Labs: Abnormal Lab Results - Last 24 Hours (Table) 09/03/21 09/03/21 09/03/21 Range/Units 10:26 10:26 11:09 RBC 6.11 H (4.30-5.90) m/uL Hct 53.9 H (39.0-53.0) % Neutrophils # 8.1 H (1.3-7.7) k/uL Lymphocytes # 0.7 L (1.0-4.8) k/uL Glucose 174 H (74-99) mg/dL Plasma Lactic Acid Luis 2.5 H* (0.7-2.0) mmol/L Alkaline Phosphatase 137 H (38-126) U/L Total Protein 8.8 H (6.3-8.2) g/dL Assessment and Plan Assessment: 1. Small bowel obstruction with etiology unclear W will keep pt NPO, IVf HYDRATION with normal saline at the rate of 75 cc per hour. We will monitor strict I/Os, symptomatic treatment with IV zofran and dilaudid for pain Protonix 40 mg IV daily Consult surgery for further recommendations 2. Lactic acidosis NO SIGNS OF INFECTION Likely related to SPO and dehydration IVF hydration with NS as indicated above Will monitor lactic acid levels closely 3. Hyperglycemia No history of diabetes wE WILL PLAN TO MONITOR ACCUCHECKS QID with insulin sliding scale Further recommendations pending test results. 4. Hypertension Patient takes norvasc at home we will hold off till oral intake is established and SBO resolvesWe will use iV hydralazine as needed 5. DVT Prophylaxis SCD / Subcutaneous heparan Code status: full code
[2021-09-04] MEDS: SODIUM CHLORIDE 0.9% 1,000 ML IV SCH ×2 (03:25→19:39)
[2021-09-04] MEDS ORDERED: cloNIDine 0.2 MG/24HR PATCH TRANSDERM SCH (07:30)
[2021-09-04] MEDS: PANTOPRAZOLE 40 MG/10 ML VIAL IV SCH (07:35)
[2021-09-04] MEDS: HEPARIN SODIUM,PORCINE/PF 5,000 UNIT/0.5 ML SYRINGE SQ SCH ×2 (07:35→19:39)
[2021-09-04 08:55] LABS: Basophils # (A) 0.03 X 10*3/uL (0.00-0.10); Basophils % (A) 0.2 %; Eosinophils # (A) 0.01 X 10*3/uL (0.04-0.35); Eosinophils % (A) 0.1 %; HCT 45.5 % (39.6-50.0); HGB 14.2 g/dL (13.0-17.0); Immature Grans, Automated 0.3 %; Lymphocytes # (A) 2.56 X 10*3/uL (0.90-5.00); Lymphocytes % (A) 20.5 %; MCHC 31.2 g/dL (32.0-37.0); MCV 86.7 fL (80.0-97.0); Mean Platelet Volume 12.5 fL (9.5-12.2); Monocytes # (A) 1.32 X 10*3/uL (0.20-1.00); Monocytes % (A) 10.6 %; NRBC Per 100 WBC 0 /100 WBCS (0.0-0.0); Neutrophils # (A) 8.54 X 10*3/uL (1.80-7.70); Neutrophils % (A) 68.3 %; Platelet Count 190 X 10*3/uL (140-440); RBC 5.25 X 10*6/uL (4.40-5.60); RDW 14.6 % (11.5-14.5)
[2021-09-04 09:12] LABS: African American GFR (CKD) 87.4 (60.0-200.0); Anion Gap 12.1 mmol/L (10.00-18.00); BUN/Creat Ratio 11.2 Ratio (12.00-20.00); Blood Urea Nitrogen 11.2 mg/dL (9.0-27.0); Calcium 8.8 mg/dL (8.7-10.3); Carbon Dioxide 19.9 mmol/L (20.0-27.5); Non-African American GFR(CKD) 75.4 (60.0-200.0); Potassium 4.2 mmol/L (3.5-5.5)
--- NOTE | 2021-09-04 12:01 | P.GSCN ---
History of Present Illness Consult date: 09/04/21 History of present illness: CHIEF COMPLAINT: Abdominal pain HISTORY OF PRESENT ILLNESS: This is a 71-year-old male who presented to the hospital complaints of abdominal pain. He had not had any bowel movement or flatus for 2 days. He does have a prior history of small bowel obstruction that was treated conservatively. History of colon cancer with a right hemicolectomy in 2013 as well as prior appendectomy. Patient reports the pain was pretty severe across the mid abdomen when he was having chills and sweats due to the pain. Patient has now started having bowel movement and flatus. Abdominal pain has resolved. His initial computed tomography scan on admission had revealed a possible early complete distal small bowel obstruction. Patient denies any naus ea or vomiting. He denies any fevers. Last colonoscopy in 2018 with a hepatic flexure polyp and diverticulosis. PAST MEDICAL HISTORY: Colon cancer status post surgery, diverticulosis, hypertension PAST SURGICAL HISTORY: Appendectomy, right hemicolectomy for colon cancer MEDICATIONS: See list. ALLERGIES: See list. SOCIAL HISTORY: No illicit drug use. REVIEW OF SYSTEMS: CONSTITUTIONAL: Denies fever or chills. HEENT: Denies blurred vision, vision changes, or eye pain. Denies hemoptysis CARDIOVASCULAR: Denies chest pain or pressure. RESPIRATORY: No shortness of breath. GASTROINTESTINAL: See HPI for pertinent findings HEMATOLOGIC: Denies bleeding disorders. GENITOURINARY: Denies any blood in urine or increased urinary frequency. SKIN: Denies pruitis. Denies rash. PHYSICAL EXAM: VITAL SIGNS: Reviewed GENERAL: Well-developed in no acute distress. HEENT: No sclera icterus. Extraocular movements grossly intact. Moist buccal mucosa. Head is atraumatic, normocephalic. No nasal drainage. ABDOMEN: Soft. Nondistended. Nontender NEUROLOGIC: Alert and oriented. Cranial nerves II through XII grossly intact. LABORATORY DATA: WBC is up at 12.5 hemoglobin 14.2 platelets 190 Sodium 139 potassium 4.2 creatinine 1.0 Lactic acid 2.5 down to 1.0 LFTs normal Alk phos 137 Lipase 154 IMAGING: Computed tomography scan abdomen and pelvis findings are discussed may reflect partial lower early complete distal small bowel obstruction proximal to postsurgical changes at the level of the ascending colon ASSESSMENT: 1. Partial lower early complete distal small bowel obstruction proximal to postsurgical changes at the level of the ascending colon. Resolved PLAN: -No surgical intervention planned -Start patient on clear liquid diet -Advance to full liquids for dinner -Possible discharge tomorrow if patient is tolerating diet -Continue supportive care -Encourage patient to ambulate Thank you for this consultation Physician [employer] note has been reviewed by physician. Signing provider agrees with the documented findings, assessment, and plan of care. Past Medical History Past Medical History: Cancer, Hypertension, Syncope Additional Past Medical History / Comment(s): Colon cancer with surgery only, SBO, benign colon polyp/diverticular disease, anemia History of Any Multi-Drug Resistant Organisms: None Reported Past Surgical History: Appendectomy, Bowel Resection, Tonsillectomy Additional Past Surgical History / Comment(s): Laparoscopic partial R colectomy, EGD, colonoscopy Past Anesthesia/Blood Transfusion Reactions: No Reported Reaction Additional Past Anesthesia/Blood Transfusion Reaction / Comm: none Past Psychological History: No Psychological Hx Reported Smoking Status: Never smoker Past Alcohol Use History: Occasional Past Drug Use History: Marijuana - Past Family History Mother Family Medical History: Cancer Additional Family Medical History / Comment(s): LUNG CA Father History Unknown: Yes Medications and Allergies Home Medications Medication Instructions Recorded Confirmed Type amLODIPine [Norvasc] 10 mg PO DAILY 12/13/20 09/03/21 History Allergies Allergy/AdvReac Type Severity Reaction Status Date / Time No Known Allergies Allergy Verified 09/03/21 13:07 Surgical - Exam Vital Signs Temp Pulse Resp BP Pulse Ox 98.4 F 77 20 201/114 96 09/03/21 09:55 09/03/21 09:55 09/03/21 09:55 09/03/21 09:55 09/03/21 09:55 Results - Labs 09/04/21 05:49 09/04/21 05:49 Abnormal Lab Results - Last 24 Hours (Table) 09/03/21 09/03/21 09/03/21 Range/Units 10:26 10:26 11:09 WBC (4.50-10.00) X 10*3/uL RBC 6.11 H (4.30-5.90) m/uL Hct 53.9 H (39.0-53.0) % MCHC (32.0-37.0) g/dL RDW (11.5-14.5) % MPV (9.5-12.2) fL Neutrophils # 8.1 H (1.3-7.7) k/uL Lymphocytes # 0.7 L (1.0-4.8) k/uL Monocytes # (0.20-1.00) X 10*3/uL Eosinophils # (0.04-0.35) X 10*3/uL Glucose 174 H (74-99) mg/dL Plasma Lactic Acid Luis 2.5 H* (0.7-2.0) mmol/L Alkaline Phosphatase 137 H (38-126) U/L Total Protein 8.8 H (6.3-8.2) g/dL Ur Specific [place] (1.001-1.035) Urine Protein (Negative) Urine Glucose (UA) (Negative) Urine Ketones (Negative) 09/03/21 09/04/21 Range/Units 17:45 05:49 WBC 12.50 H (4.50-10.00) X 10*3/uL RBC (4.30-5.90) m/uL Hct (39.0-53.0) % MCHC 31.2 L (32.0-37.0) g/dL RDW 14.6 H (11.5-14.5) % MPV 12.5 H (9.5-12.2) fL Neutrophils # 8.54 H (1.3-7.7) k/uL Lymphocytes # (1.0-4.8) k/uL Monocytes # 1.32 H (0.20-1.00) X 10*3/uL Eosinophils # 0.01 L (0.04-0.35) X 10*3/uL Glucose (74-99) mg/dL Plasma Lactic Acid Luis (0.7-2.0) mmol/L Alkaline Phosphatase (38-126) U/L Total Protein (6.3-8.2) g/dL Ur Specific [place] 1.047 H (1.001-1.035) Urine Protein Trace H (Negative) Urine Glucose (UA) 1+ H (Negative) Urine Ketones Trace H (Negative) Diabetes panel 09/03/21 Range/Units 11:09 Sodium 138 (137-145) mmol/L Potassium 4.0 (3.5-5.1) mmol/L Chloride 103 (98-107) mmol/L Carbon Dioxide 23 (22-30) mmol/L BUN 11 (9-20) mg/dL Creatinine 0.94 (0.66-1.25) mg/dL Glucose 174 H (74-99) mg/dL Calcium 9.4 (8.4-10.2) mg/dL AST 23 (17-59) U/L ALT 23 (4-49) U/L Alkaline Phosphatase 137 H (38-126) U/L Total Protein 8.8 H (6.3-8.2) g/dL Albumin 4.8 (3.5-5.0) g/dL Calcium panel 09/03/21 Range/Units 11:09 Calcium 9.4 (8.4-10.2) mg/dL Albumin 4.8 (3.5-5.0) g/dL Pituitary panel 09/03/21 Range/Units 11:09 Sodium 138 (137-145) mmol/L Potassium 4.0 (3.5-5.1) mmol/L Chloride 103 (98-107) mmol/L Carbon Dioxide 23 (22-30) mmol/L BUN 11 (9-20) mg/dL Creatinine 0.94 (0.66-1.25) mg/dL Glucose 174 H (74-99) mg/dL Calcium 9.4 (8.4-10.2) mg/dL Adrenal panel 09/03/21 Range/Units 11:09 Sodium 138 (137-145) mmol/L Potassium 4.0 (3.5-5.1) mmol/L Chloride 103 (98-107) mmol/L Carbon Dioxide 23 (22-30) mmol/L BUN 11 (9-20) mg/dL Creatinine 0.94 (0.66-1.25) mg/dL Glucose 174 H (74-99) mg/dL Calcium 9.4 (8.4-10.2) mg/dL Total Bilirubin 0.7 (0.2-1.3) mg/dL AST 23 (17-59) U/L ALT 23 (4-49) U/L Alkaline Phosphatase 137 H (38-126) U/L Total Protein 8.8 H (6.3-8.2) g/dL Albumin 4.8 (3.5-5.0) g/dL
[2021-09-04 20:25] VITALS: TEMP 98.5
--- NOTE | 2021-09-05 01:03 | P.PN ---
Subjective 71-year-old male presents emergency Department with chief complaint of abdominal pain, possible obstruction. Patient had a history of abdominal surgeries, history of bowel obstruction last year. Patient states is distended, very constipated has had no stool output. No fevers or chills slight nausea no vomiting no diarrhea no chest pain. Patient denies any dysuria hematuria patient offers no complaints. Workup in ED reveals WBC of 9.4, HGB 17.2, nA OF 138, K 4.0, BUN/Cr 11/0.9, Blood glucose orf 174, Lactic acid 2.[address] abdomen/pelvis reveals findings that reflect partial small bowel obstruction Patient is being admitted for further management Subjective: Resuming with the care of the patient today 09/04/2021 Patient reports improvement in his symptoms with no nausea vomiting or abdominal pain or abdominal tenderness or distention, status or resolved. He has loose bowel movement this morning. And he wants that to be advanced, currently liquid diet advanced per surgery team as tolerated. Mild leukocytosis Rest of labs are stable. Possible discharge in 24-48 hours Objective - Vital Signs Vital signs: Vital Signs Temp 98.7 F 09/04/21 12:42 Pulse 57 L 09/04/21 12:42 Resp 16 09/04/21 12:42 BP 163/92 09/04/21 12:42 Pulse Ox 98 09/04/21 12:42 Intake & Output 09/03/21 09/04/21 09/04/21 18:59 06:59 18:59 Intake Total 0 Output Total 600 400 Balance -600 -400 Weight 108.862 kg Intake: Oral 0 Output: Urine 600 400 Other: Voiding Method Toilet Toilet # Bowel Movements 1 - Exam GENERAL: The patient is alert and oriented x3, not in any acute distress. Well developed, well nourished. HEENT: Pupils are round and equally reacting to light. EOMI. No scleral icterus. No conjunctival pallor. Normocephalic, atraumatic. No pharyngeal erythema. No thyromegaly. CARDIOVASCULAR: S1 and S2 present. No murmurs, rubs, or gallops. PULMONARY: Chest is clear to auscultation, no wheezing or crackles. ABDOMEN: Soft, nontender, nondistended, normoactive bowel sounds. No palpable organomegaly. MUSCULOSKELETAL: No joint swelling or deformity. EXTREMITIES: No cyanosis, clubbing, or pedal edema. NEUROLOGICAL: Gross neurological examination did not reveal any focal deficits. SKIN: No rashes. no petechiae. - Labs CBC & Chem 7: 09/04/21 05:49 09/04/21 05:49 Labs: Abnormal Lab Results - Last 24 Hours (Table) 09/03/21 09/04/21 09/04/21 Range/Units 17:45 05:49 05:49 WBC 12.50 H (4.50-10.00) X 10*3/uL MCHC 31.2 L (32.0-37.0) g/dL RDW 14.6 H (11.5-14.5) % MPV 12.5 H (9.5-12.2) fL Neutrophils # 8.54 H (1.80-7.70) X 10*3/uL Monocytes # 1.32 H (0.20-1.00) X 10*3/uL Eosinophils # 0.01 L (0.04-0.35) X 10*3/uL Carbon Dioxide 19.9 L (20.0-27.5) mmol/L BUN/Creatinine Ratio 11.20 L (12.00-20.00) Ratio Glucose 123 H (70-110) mg/dL Ur Specific [place] 1.047 H (1.001-1.035) Urine Protein Trace H (Negative) Urine Glucose (UA) 1+ H (Negative) Urine Ketones Trace H (Negative) Assessment and Plan Assessment: 1. Ascending: bowel obstruction , improving Advance diet as tolerated, surgery team on the case 2. Lactic acidosis NO SIGNS OF INFECTION Likely related to SPO and dehydration IVF hydration with NS as indicated above Will monitor lactic acid levels closely 3. Hyperglycemia No history of diabetes wE WILL PLAN TO MONITOR ACCUCHECKS QID with insulin sliding scale Further recommendations pending test results. 4. Hypertension Keep monitoring 5. DVT Prophylaxis SCD / Subcutaneous heparan Code status: full code
[2021-09-05] MEDS: SODIUM CHLORIDE 0.9% 1,000 ML IV SCH (03:54)
[2021-09-05] MEDS: PANTOPRAZOLE 40 MG/10 ML VIAL IV SCH (07:58)
[2021-09-05] MEDS: HEPARIN SODIUM,PORCINE/PF 5,000 UNIT/0.5 ML SYRINGE SQ SCH (08:02)
[2021-09-05 09:13] LABS: Basophils # (A) 0.05 X 10*3/uL (0.00-0.10); Basophils % (A) 0.8 %; Eosinophils # (A) 0.12 X 10*3/uL (0.04-0.35); Eosinophils % (A) 1.9 %; HCT 44.7 % (39.6-50.0); HGB 14.1 g/dL (13.0-17.0); Immature Grans, Automated 0.2 %; Lymphocytes % (A) 28.4 %; MCH 27.1 pg (27.0-32.0); MCHC 31.5 g/dL (32.0-37.0); Mean Platelet Volume 12.9 fL (9.5-12.2); Monocytes # (A) 0.85 X 10*3/uL (0.20-1.00); Monocytes % (A) 13.4 %; NRBC Per 100 WBC 0 /100 WBCS (0.0-0.0); Neutrophils % (A) 55.3 %; Platelet Count 178 X 10*3/uL (140-440); RDW 14.4 % (11.5-14.5); WBC 6.33 X 10*3/uL (4.50-10.00)
--- NOTE | 2021-09-05 12:09 | P.PN ---
Subjective Progress Note Date: 09/05/21 CHIEF COMPLAINT: Small bowel obstruction HISTORY OF PRESENT ILLNESS: Patient denies any abdominal pain. He is tolerating full liquid diet. He continues to have bowel movements and flatus. Denies any nausea or vomiting. Afebrile. White count has decreased from 12-6.3. He has been up and ambulating. Patient seen and examined with Dr. mcrae PHYSICAL EXAM: VITAL SIGNS: Reviewed. GENERAL: Well-developed in no acute distress. HEENT: No sclera icterus. Extraocular movements grossly intact. Moist buccal mucosa. Head is atraumatic, normocephalic. ABDOMEN: Soft. Nondistended. Nontender. NEUROLOGIC: Alert and oriented. Cranial nerves II through XII grossly intact. ASSESSMENT: 1. Partial lower early complete distal small bowel obstruction proximal to postsurgical changes at the level of the ascending colon. Resolved. PLAN: -Patient can be discharge from surgical standpoint -Advance diet to low fiber and then as tolerated Physician County Attorney note has been reviewed by physician. Signing provider agrees with the documented findings, assessment, and plan of care. Objective - Vital Signs Vital signs: Vital Signs Temp 98.5 F 09/05/21 05:00 Pulse 58 L 09/05/21 05:00 Resp 18 09/05/21 05:00 BP 166/93 09/05/21 05:00 Pulse Ox 97 09/05/21 05:00 Intake & Output 09/04/21 09/05/21 09/05/21 18:59 06:59 18:59 Intake Total 540 400 Output Total 600 1400 Balance -60 -1000 Intake: Oral 540 400 Output: Urine 600 1400 Other: Voiding Method Toilet Toilet Toilet - Labs CBC & Chem 7: 09/05/21 06:09 09/04/21 05:49 Labs: Abnormal Lab Results - Last 24 Hours (Table) 09/05/21 Range/Units 06:09 MCHC 31.5 L (32.0-37.0) g/dL MPV 12.9 H (9.5-12.2) fL
[2021-09-05 12:30] VITALS: BP 162/95; PULSE 69; RESP 16
[2021-09-05] MEDS ORDERED: amLODIPine 10 MG TAB PO SCH (14:30)
--- NOTE | 2021-09-05 22:47 | P.DS ---
Providers Date of admission: 09/03/21 12:39 Attending physician: Margaret Enamorado Consults: 09/03/21 12:23 Consult Physician Urgent Consulting Provider: Jameson Barrientos Consult Reason/Comments: SBO Do you want consulting provider notified?: Yes Primary care physician: Jeny Kramer [facility] Course: Diagnoses: Ascending colon Bowel obstruction, completely resolved and cleared by general surgeon for discharge Hyperlipidemia Hypertension Elevated lactic acid, came back to normal Hospital course: 71-year-old male presents emergency Department with chief complaint of abdominal pain, Patient had a history of abdominal surgeries, history of bowel obstruction last year. Patient states is distended, very constipated has had no stool output. CT abdomen/pelvis reveals findings that reflect partial small bowel obstruction Patient was admitted to the hospital with surgical team consult, patient treated conservatively and his abdominal pain completely resolved, he tolerates diet well and he had regular bowel movement. He was asymptomatic this morning with no other symptoms like no chest pain or dyspnea. No fever. Patient was not eager to go home today. Patient was cleared for discharge by general surgeon team Problems and management plan were discussed with the patient and he verbalized understanding and acceptance Patient was found stable and can be discharged home however he needs follow-up as an outpatient. Patient was instructed to follow up with PCP Dr. Ortega within one week and patient agrees Patient was instructed to follow up with general surgeon in 7-10 days and he agrees to call and make appointment Physical exam Gen: patient is a AAOx3, no distress CVS: S1-S2, RRR, no murmur Lungs: B/L CTA, no wheezing Abdomen: soft, no distention, no tenderness, positive bowel sounds Extremity: no leg edema or induration Time spent more than 35 minutes Patient Condition at Discharge: Fair Plan - Discharge Summary Discharge Rx Participant: No New Discharge Prescriptions: New Omeprazole [PriLOSEC] 20 mg PO AC-BID 14 Days #28 cap Continue amLODIPine [Norvasc] 10 mg PO DAILY #30 tab Discharge Medication List Omeprazole [PriLOSEC] 20 mg PO AC-BID 14 Days #28 cap 09/05/21 [Rx] amLODIPine [Norvasc] 10 mg PO DAILY #30 tab 09/05/21 [Rx] Follow up Appointment(s)/Referral(s): Williams Fermin MD [Primary Care Provider] - 09/12/21 9:30 am Jameson Barrientos MD [STAFF PHYSICIAN] - 09/15/21 10:40 am (We recommend colonoscopy as an outpatient) Activity/Diet/Wound Care/Special Instructions: Regular diet (low fiber and then as tolerated) Activity is restricted till you see your doctor Discharge Disposition: HOME SELF-CARE
== END 2021-09-05 15:15 | disposition home or self-care (01) ==
LOC: EC 09:55 → 5NMEDONC 12:39 → INTOOBSV 12:39 → 5NMEDONC 13:00 → UNDODISIN 09-05 15:15
PROVIDERS: ADMIT Hospitalist; ATTEND Hospitalist
DX: K56.600 Partial intestinal obstruction, unspecified as to cause (principal); E87.2 Acidosis; K57.90 Diverticulosis of intestine, part unspecified, without perforation or abscess without bleeding; I10 Essential (primary) hypertension; D72.829 Elevated white blood cell count, unspecified; R73.9 Hyperglycemia, unspecified; D64.9 Anemia, unspecified; E78.5 Hyperlipidemia, unspecified; Z98.0 Intestinal bypass and anastomosis status; Z79.899 Other long term (current) drug therapy; Z87.19 Personal history of other diseases of the digestive system; Z85.038 Personal history of other malignant neoplasm of large intestine; Z86.010 Personal history of colon polyps; Z90.49 Acquired absence of other specified parts of digestive tract; Z98.890 Other specified postprocedural states; Z80.1 Family history of malignant neoplasm of trachea, bronchus and lung
CPT/HCPCS: 96376 ×3; 96361 ×4; 96372; 96375 ×2; 96374; 99285; 36415; 80053; 80048; 83605; 83690; 85025 ×3; 81003; 74177; G0378 ×3; J0360; J2405; J1170 ×2; C9113 ×2; Q9967; J1644

== ENCOUNTER 2024-02-10 13:30 | Inpatient (IN) | payer MEDICARE ==
[~2024-02-10 13:30] MED LIST changes: -LACTATED RINGERS 1,000 ML IV SCH; -LIDOCAINE 1% 20 ML VIAL (10MG/ML) FOR IV START INTRADERMA PRN; +MORPHINE SULFATE 4 MG/ML SYRINGE ONE; +ONDANSETRON 4 MG/2 ML VIAL ONE; +PIPERACILLIN-TAZOBACTAM 3.375 GM VIAL ONE
[2024-02-10] MEDS ORDERED: HEPARIN SODIUM,PORCINE 5,000 UNIT/ML 1 ML VIAL ONE (23:27)
[2024-02-10] MEDS ORDERED: SODIUM CHLORIDE 0.9% 1,000 ML BAG ONE (23:30)
[2024-02-11] MEDS ORDERED: hydrALAZINE HCL 20 MG/ML 1 ML VIAL ONE ×3 (01:10→20:10)
[2024-02-11] MEDS ORDERED: HEPARIN SODIUM,PORCINE 5,000 UNIT/ML 1 ML VIAL ONE ×3 (09:25→23:39)
[2024-02-11] MEDS ORDERED: LOSARTAN 50 MG TAB ONE (23:38)
[2024-02-11] MEDS ORDERED: amLODIPine 10 MG TAB ONE (23:38)
[2024-02-12] MEDS ORDERED: hydrALAZINE HCL 20 MG/ML 1 ML VIAL ONE (07:24)
[2024-02-12] MEDS ORDERED: HEPARIN SODIUM,PORCINE 5,000 UNIT/ML 1 ML VIAL ONE (08:36)
--- NOTE | 2024-03-11 14:06 | XR ---
[id number] SHELBY BAKER : 1950 EXAM: Frontal view of the chest. DATE: 02/10/2024 16:46 INDICATION: Nasogastric tube placement. COMPARISON: None, please note PACS downtime occurred during the radiologist interpretation of these i mages with limited priors/reports.. TECHNIQUE: Frontal view of the chest. FINDINGS: Lungs/Pleura: There is no evidence of pleural effusion, focal consolidation, or pneumothorax. Pulmonary vascularity: Unremarkable. Heart/mediastinum: Cardiomediastinal silhouette is unremarkable. Musculoskeletal: No acute osseous pathology. Other findings: No significant findings. Lines/Tubes: Nasogastric tube distal tip and side-port near the distal esophagus. Advancement of at least 7.0 cm r ecommended. IMPRESSION: Nasogastric tube distal tip and side-port near the distal esophagus. Advancement of at least 7.0 cm r ecommended.
--- NOTE | 2024-03-12 11:12 | CT ---
[id number] Ze Vallecillo [id number] EXAMINATION TYPE: CT abdomen pelvis wo con CT DLP: 825.7 mGycm, Automated exposure control for dose reduction was used. DATE OF EXAM: 02/10/2024 10:46 AM COMPARISON: THIS EXAM WAS READ DURING PACS DOWNTIME, NO PRIORS AVAILABLE. CLINICAL INDICATION: Mid abdominal cramping. TECHNIQUE: Axial CT abdomen pelvis wo con;Sagittal and coronal reformats were created on a separate workstation. Contrast used: mL of , (none if empty) Oral contrast used: (none if empty) FINDINGS: LOWER CHEST: Unremarkable ABDOMEN LIVER: Diffusely hypoattenuating parenchyma. GALLBLADDER AND BILE DUCTS: Unremarkable. PANCREAS: Unremarkable. SPLEEN: Unremarkable. ADRENAL GLANDS: Unremarkable. KIDNEYS AND URETERS: No evidence of hydronephrosis or renal calculus. The ureters are unremarkable. PELVIS BLADDER: Unremarkable REPRODUCTIVE: Prostate is enlarged in size measuring 4.5 cm in transverse dimension. ABDOMEN & PELVIS STOMACH AND BOWEL: Small bowel feces in the right lower quadrant with upstream mild dilation of bowel . There is some feces in the cecum however. Left PICC seen throughout remainder of the colon. Post torres rgical changes the appendix and cecum. Tubular structure thought to represent part of the appendix re dary present. PERITONEUM/RETROPERITONEUM: No evidence of pneumoperitoneum or free fluid. VASCULATURE: Mild atherosclerotic calcifications are present throughout the abdominal aorta and its b ranches. No evidence of aortic aneurysm. MUSCULOSKELETAL: No acute osseous abnormalities LYMPH NODES: No gross evidence for lymphadenopathy. SOFT TISSUE/ABDOMINAL WALL: Fat-containing umbilical hernia. Fat-containing inguinal hernia. IMPRESSION: 1. Small bowel feces in the right lower quadrant small bowel. Correlate for delayed transit versus p artial obstruction given some feces in the cecum less likely complete obstruction. Mild dilation of t he bowel upstream from this region. Dedicated small bowel follow-through recommended to ensure patenc y of the gastric intestinal tract. 2. Hepatic steatosis. 3. Subtotal appendectomy. 4. Fat-containing umbilical hernia. 5. Scattered colonic diverticula. 6. Prostatomegaly, Correlate with serum PSA
--- NOTE | 2024-03-16 08:34 | XR ---
Site ID [facility] Patient Ze Vallecillo ID [id number] 1950 Age/Gender: 73Y, M Order # N/A Procedure XR CHEST 1V Date 02/10/2024 10:25:00 PM EXAMINATION TYPE: Chest X-ray 1 View DATE RECEIVED ON: 02/21/2024 DATE PERFORMED: 02/10/2024 COMPARISON: Chest radiograph 04/02/2015, CTA chest 04/02/2015 HISTORY: NG tube placement TECHNIQUE: Single frontal view of the chest is obtained. Delayed interpretation due to institutional cyber attack. FINDINGS: There is no focal air space opacity, pleural effusion, or pneumothorax seen. NG tube demo nstrated coursing below the diaphragm with distal tip in the stomach. The sidehole is at the GE junct ion. Recommend advancement of approximately 7 cm. The cardiac silhouette size is within normal limits . The osseous structures are intact. IMPRESSION: NG tube sidehole at the GE junction. Recommend advancement of 7 cm.
--- NOTE | 2024-03-26 14:39 | HP ---
HISTORY AND PHYSICAL HISTORY OF PRESENT ILLNESS: gentleman who presented to Emergency Room Clinic with abdominal pain and nausea. The patient has a previous history of appendectomy and colon resection. The patient states he had a similar episode about a year ago where he had a small bowel obstruction which resolved spontaneously. For further history, please see notes. PHYSICAL EXAMINATION: VITAL SIGNS: Stable. ABDOMEN: Soft. There is an upper midline scar. The abdomen is minimally tender with no rebound or guarding. IMPRESSION: Partial small bowel obstruction. . MMODL / IJN: [id number] /
== END 2024-02-12 14:38 | disposition home or self-care (01) | DRG 390 ==
LOC: 4SSUR 13:30
PROVIDERS: ADMIT Surgery; ATTEND Surgery
DX: K56.600 Partial intestinal obstruction, unspecified as to cause (principal); I10 Essential (primary) hypertension; E87.6 Hypokalemia; I16.0 Hypertensive urgency; Z85.038 Personal history of other malignant neoplasm of large intestine; Z90.49 Acquired absence of other specified parts of digestive tract
CPT/HCPCS: 71045; 74176; 96361; 96374; 96375; 99285

== ENCOUNTER → 2024-05-13 | Outpatient (CLI) | payer MEDICARE ==
--- NOTE | 2024-05-13 15:57 | US ---
EXAMINATION TYPE: US carotid duplex BILAT DATE OF EXAM: 05/13/2024 COMPARISON: NONE CLINICAL INDICATION: Male, 73 years old with history of R09.89 OTH SYMPTOMS AND SIGNS INVOLVING THE C IRC A; Bruit Additional History: R09.89 Carotid bruit TECHNIQUE: Grayscale, color Doppler and spectral Doppler evaluation of the bilateral carotid systems and vertebral arteries. Indirect Doppler criteria was utilized. FINDINGS: EXAM MEASUREMENTS: RIGHT: Peak Systolic Velocity (PSV) cm/sec ----- Right CCA: 123 ----- Right ICA: 100 ----- Right ECA: 95.6 ICA/CCA ratio: 0.81 RIGHT: End Diastole cm/sec ----- Right CCA: 24.9 ----- Right ICA: 39.2 ----- Right ECA: 16.0 LEFT: Peak Systolic Velocity (PSV) cm/sec ----- Left CCA: 123 ----- Left ICA: 115 ----- Left ECA: 106 ICA/CCA ratio: 0.93 LEFT: End Diastole cm/sec ----- Left CCA: 18.7 ----- Left ICA: 28.5 ----- Left ECA: 17.2 VERTEBRALS (direction of flow): Right Vertebral: Antegrade Left Vertebral: Antegrade Rhythm: Normal LEAD APPLIER NOTES: *Elevated velocities within right prox and mid CCA. . Intimal thickening seen bila teral carotid arteries. Left ICA appears tortuous. Color Doppler imaging shows patency with blood flow throughout the carotid artery. IMPRESSION: Right: Less than 50% stenosis of the carotid bifurcation. Normal (no stenosis)=ICA PSV < 125 cm/s: ra fabricio < 2.0: ICA EDV<40 cm/s. Left: Less than 50% stenosis of the carotid bifurcation. Normal (no stenosis)=ICA PSV < 125 cm/s: rat io < 2.0: ICA EDV<40 cm/s. Criteria for Assigning % of Stenosis / Diameter reduction (Estimation based on the indirect measurements of the internal carotid artery velocities (ICA PSV). 1. Normal (no stenosis)=ICA PSV < 125 cm/s: ratio < 2.0: ICA EDV<40 cm/s. 2. Less than 50% stenosis=ICA PSV < 125 cm/s: ratio < 2.0: ICA EDV<40 cm/s. 3. 50 to 69% stenosis=ICA PSV of 125 to 230 cm/s: ration 2.0 ? 4.0: ICA EDV 40-100 cm/s. 4. Greater than 70% stenosis to near occlusion= ICA PSV > 230 cm/s: ratio > 4.0: ICA EDV > 100 cm/s. 5. Near occlusion= ICA PSV velocities may be low or undetectable: variable ratio and ICA EDV. 6. Total occlusion=unable to detect flow. [facility], , 05/13/2024 3:55 PM
[2024-05-14 03:27] LABS: ALT 13 U/L (10-49); AST 16 U/L (14-35); Albumin 4.6 g/dL (3.8-4.9); Albumin/Globulin Ratio 1.48 Ratio (1.60-3.17); Alkaline Phosphatase 111 U/L (41-126); BUN/Creat Ratio 13.11 Ratio (12.00-20.00); Blood Urea Nitrogen 11.8 mg/dL (9.0-27.0); Calcium 9.6 mg/dL (8.7-10.3); Carbon Dioxide 21.2 mmol/L (21.6-31.8); Chloride 104 mmol/L (96-109); Chol/HDL Ratio 3.24 Ratio; Globulin 3.1 g/dL (1.6-3.3); Glucose 109 mg/dL (70-110); LDL Cholesterol,Calculated 95.8 mg/dL (0.0-131.0); Potassium 3.5 mmol/L (3.5-5.5); Prostate Specific Antigen 1.29 ng/mL (0.000-6.500); Sodium 137 mmol/L (135-145); Total Bilirubin 0.5 mg/dL (0.3-1.2); Total Protein 7.7 g/dL (6.2-8.2); VLDL Calculation 17.64 mg/dL (5.00-40.00)
[2024-05-14 04:13] LABS: Basophils # (A) 0.08 X 10*3/uL (0.00-0.10); Eosinophils # (A) 0.44 X 10*3/uL (0.04-0.35); Eosinophils % (A) 5.7 %; HCT 46.1 % (39.6-50.0); HGB 14.8 g/dL (13.0-17.0); Lymphocytes # (A) 2.31 X 10*3/uL (0.90-5.00); Lymphocytes % (A) 29.8 %; MCH 27.2 pg (27.0-32.0); MCHC 32.1 g/dL (32.0-37.0); MCV 84.6 FL (80.0-97.0); Mean Platelet Volume 13.1 FL (9.5-12.2); Monocytes # (A) 0.76 X 10*3/uL (0.20-1.00); Monocytes % (A) 9.8 %; NRBC Per 100 WBC 0 X 10*3/uL (0.00-0.01); Neutrophils # (A) 4.11 X 10*3/uL (1.80-7.70); Neutrophils % (A) 53.2 %; Platelet Count 139 X 10*3/uL (140-440); RBC 5.45 X 10*6/uL (4.40-5.60); RBC Morphology Normal (Normal); RDW 14.9 % (11.5-14.5); WBC 7.74 X 10*3/uL (4.50-10.00)
== END | disposition home or self-care (01) ==
LOC: RADUSWWP 14:26
PROVIDERS: ATTEND Family Medicine
DX: I65.23 Occlusion and stenosis of bilateral carotid arteries (principal); R09.89 Other specified symptoms and signs involving the circulatory and respiratory systems; I10 Essential (primary) hypertension
CPT/HCPCS: 80053; 80061; 82306; 84153; 84443; 85025; 93880

== ENCOUNTER → 2024-07-14 | Outpatient (CLI) | payer MEDICARE | END | disposition home or self-care (01) | LOC: LABWHC1 08:35 | PROVIDERS: ATTEND Family Medicine | DX: E03.9 Hypothyroidism, unspecified (principal) | CPT/HCPCS: 36415; 84443 ==